=== PATIENT | female | born 1960 | race Caucasian/White ===

== ENCOUNTER 2022-08-26 02:26 | Inpatient (IN) | payer OTHER, SELFPAY ==
[2022-08-26] VITALS (55 sets, daily range): BP systolic 106–182; BP diastolic 56–114; PULSE 54–91; RESP 14–36; TEMP 36.4–37.7; O2SAT 92–100; BMI 46.2
--- NOTE | 2022-08-26 | ECG_ITS ---
Measurements Intervals [place] Rate: 80 P: 44 OK: 191 QRS: -18 QRSD: 106 T: 101 QT: 378 QTc: 438 Interpretive Statements SINUS RHYTHM MISSING LEAD V3 LEFT VENTRICULAR HYPERTROPHY AND ST-T CHANGE BASELINE ARTIFACT- V5-V6 BORDERLINE ECG NO PREVIOUS ECG AVAILABLE FOR COMPARISON Electronically Signed On 08-26-2022 6:48:05 CDT by Ren Carey D.O.
--- NOTE | 2022-08-26 | ECHO_ITS ---
Patient Info Name: Cassie Sharpe Age: 61 years : 1960 Gender: Female Ht: 67 in Wt: 295 lbs BSA: 2.59 m2 HR: 71 bpm BP: 106 / 56 mmHg Heart Rhythm: Sinus Rhythm Technical Quality: Fair Exam Date: 08/26/2022 9:21 AM Exam Location: [facility] Pulmonary Exam Room: ICU5 Patient Status: Inpatient Admit Date: 08/26/2022 Staff Ordering Physician: Rafa Mcgrath MD Power And Recovery Supervisor: Jalyn Parks RDCS Attending Provider: Zurdo Milton MD Exam Type: CA echo doppler color flow Study Info Indications - cardiac arrest Complete two-dimensional, color flow and Doppler transthoracic echocardiogram is performed. Summary 1. Complete two-dimensional, color flow and Doppler transthoracic echocardiogram is performed. 2. Left ventricular chamber dimension is normal. 3. Left ventricular systolic function is normal, estimated at 60-65%. 4. There is moderately increased left ventricular wall thickness. 5. The left ventricular diastolic function is grade I diastolic dysfunction. 6. Right ventricular systolic function is normal. 7. Left atrial chamber dimension is moderately enlarged. 8. Right atrial chamber dimension is moderately enlarged. 9. There is mild mitral valve regurgitation. 10. There is mild tricuspid valve regurgitation. 11. Dilated inferior vena cava with <50% collapse upon inspiration consistent with elevated right atrial pressure, 15 mmHg. Left Ventricle Left ventricular chamber dimension is normal. Left ventricular systolic function is normal, estimated at 60-65%. There is moderately increased left ventricular wall thickness. The left ventricular diastolic function is grade I diastolic dysfunction. Right Ventricle Right ventricular chamber dimension is normal. Right ventricular systolic function is normal. Left Atria Left atrial chamber dimension is moderately enlarged. Right Atria Right atrial chamber dimension is moderately enlarged. Aortic Valve The aortic valve is trileaflet. There is no aortic valve stenosis. There is no aortic valve regurgitation. There is mild aortic valve calcification. Pulmonic Valve The pulmonic valve is not well visualized. Mitral Valve The mitral valve has normal leaflets. There is no mitral valve stenosis. There is mild mitral valve regurgitation. The mitral valve annulus is mildly calcified. Tricuspid Valve There is mild tricuspid valve regurgitation. Pericardium/Pleural There is no pericardial effusion. Inferior Vena Cava Dilated inferior vena cava with <50% collapse upon inspiration consistent with elevated right atrial pressure, 15 mmHg. Aorta The aortic root size at the sinus of Valsalva is normal. Left Ventricular Outflow Tract Name Value Normal LVOT 2D LVOT Diameter 2.0 cm LVOT Doppler LVOT Peak Gradient 5 mmHg LVOT Mean Gradient 3 mmHg LVOT VTI 21 cm LVOT VTI/AV VTI Ratio 0.6 LVOT Stroke Volume 64 ml LVOT CO 15.7 l/min LVOT
--- NOTE | ~2022-08-26 | XR_ITS ---
Portable chest x-ray Comparison: 02/02/2009 Clinical History: Tube placement Findings: Endotracheal tube and NG tube are in satisfactory positions. There is extensive bilateral airspace disease, left lung worse than right. Cardiomediastinal silhouette is stable. Bones and soft tissues are unremarkable. Impression: Extensive bilateral airspace disease, left lung worse than right. Correlate for pulmonary edema/atele ctasis versus pneumonia. Support tubes, as above. Reviewed, dictated and finalized at location . Impression: Extensive bilateral airspace disease, left lung worse than right. Correlate for pulmonary edema/atelectasis versus pneumonia. Support tubes, as above.
--- NOTE | ~2022-08-26 | CT_ITS ---
EXAMINATION: CT brain wo con DATE: 08/28/2022 11:39 INDICATION: Altered mental status. TECHNIQUE: Computed tomography (CT) of the head was performed without intravenous contrast. The mA wa s adjusted according to patient size. Iterative reconstruction technique was employed. The dose-lengt h product was 605.33 mGy-cm. COMPARISON: Head CT 08/26/2022 FINDINGS: There is no intracranial hemorrhage, acute infarction, or abnormal intracranial mass lesion . The ventricles are normal in size. The paranasal sinuses are clear. The mastoid air cells are jesús l. The orbits are normal. IMPRESSION: 1. Normal brain. Reviewed, dictated and finalized at location A. IMPRESSION: 1. Normal brain.
--- NOTE | ~2022-08-26 | CT_ITS ---
Clinical Indication: Cardiac arrest CT Scan of the Chest, Abdomen, and Pelvis with Contrast: Technique: Contiguous sections were acquired throughout the chest, abdomen, and pelvis after intraven ous administration of 100 cc of Omnipaque 350. Dose reduction technique was used on this scan by wes eddying automated exposure control and iterative reconstruction technique. The dose-length product (DL P) was 2088.88 mGy-cm. Findings: Endotracheal tube and NG tube are in place. There is no evidence of any significant mediastinal, hilar or axillary lymphadenopathy. The mediastin al soft tissues appear normal. No aortic aneurysm or dissection. No large central pulmonary embolus s een. Probable cardiomegaly. There is no evidence of pleural or pericardial effusion. There is extensive, dense left upper lobe consolidation and volume loss, consistent with extensive le ft upper lobe atelectatic change. There is patchy airspace consolidation the bilateral lower lobes, w hich could reflect pulmonary edema/atelectasis versus pneumonia. There is mild patchy groundglass [place] in the right upper lobe. Displaced fracture at the anterior aspect of the right fourth and seventh ribs noted. Possible focal angulated nondisplaced fractures at the anterior right fifth and sixth ribs. The liver, spleen, pancreas, adrenals and kidneys are within normal limits. Cholecystectomy clips not ed. No evidence of aortic aneurysm. No lymphadenopathy. No bowel obstruction or bowel wall thickening. There is no evidence to suggest acute appendicitis. Urinary bladder is collapsed around a Fernández catheter. No pelvic mass seen. No ascites. Impression: Extensive left upper lobe atelectasis. Patchy consolidation to bilateral lung bases and mild patchy ground glass opacities in the right uppe r lobe. Correlate for pulmonary edema, pneumonia, or less likely pulmonary hemorrhage/pulmonary contu sions. Fractures of the right fourth and seventh ribs, and questionably the right fifth and sixth ribs. No significant abnormality in the abdomen or pelvis. Reviewed, dictated and finalized at location . Impression: Extensive left upper lobe atelectasis. Patchy consolidation to bilateral lung bases and mild patchy ground glass opaci ties in the right upper lobe. Correlate for pulmonary edema, pneumonia, or less likely pulmonary hemorrhage/pulmonary contusions. Fractures of the right fourth and seventh ribs, and questionably the right fift h and sixth ribs. No significant abnormality in the abdomen or pelvis.
--- NOTE | ~2022-08-26 | XR_ITS ---
EXAMINATION: XR abdomen/kub 1V DATE: 08/31/2022 09:44 INDICATION: Nasogastric tube with tube feedings and abdominal distention. TECHNIQUE: A supine view of the abdomen on 2 radiographs was obtained. COMPARISON: CT dated 08/26/2022 FINDINGS: Nasogastric tube tip in proximal side port in the body of the stomach. The gas filling the colon in w ithout wilma dilation. No dilated loops of gas-filled bowel to suggest obstruction. The bladder. Chol ecystectomy clips in right upper quadrant. Cardiomegaly. Bandlike discoid atelectasis at the left clinton g base. IMPRESSION: 1. Gastric tube in the stomach. 2. Gas-filled colon without frankly dilated bowel to suggest obstruction. 2. Cardiomegaly. Reviewed, dictated and finalized at location A.
--- NOTE | ~2022-08-26 | CT_ITS ---
EXAMINATION: CT diagnostic chest wo con DATE: 08/28/2022 11:39 INDICATION: Resp Failure TECHNIQUE: Computed tomography (CT) of the chest was performed without intravenous contrast. Addition al 3D reconstructions utilizing coronal maximum intensity projection (MIP) were performed. Automated exposure control and iterative reconstruction technique were employed. The dose-length product was 53 2.90 mGy-cm. COMPARISON: Chest CT dated 08/26/2022 FINDINGS: Endotracheal tube tip 5.0 cm above the carrie. Nasogastric tube extends into the stomach and below th e inferior most axial image. Left lower lobe collapse and partial right lower lobe collapse. And volu me loss and groundglass opacities in the left upper lobe and lingula and in the noncollapsed portion of the right lower lobe and favor additional atelectasis over pneumonia. No septal line thickening to suggest pulmonary edema. No pleural effusion. Cardiomegaly. Atherosclerotic coronary artery calcific ations. No pericardial effusion. Enlargement of the central pulmonary arteries consistent with pulmon clive arterial hypertension. Thoracic aorta is normal in caliber. No pathologically enlarged thoracic l ymphadenopathy. Coarse calcifications at the thyroid without discrete nodule. Visualized upper abdome n is unremarkable. Again seen are relatively recent-appearing fractures of the right fourth-seventh r ibs. There are bridging osteophytes at multiple levels in the spine, consistent with diffuse idiopath ic skeletal hyperostosis (DISH). IMPRESSION: 1. Left lower lobe collapse and partial collapse of the right lower lobe. Underlying pneumonia not ex cludable. 2. Groundglass opacities in the left upper lobe and lingula with corresponding volume loss and noncol lapsed portion of the right lower lobe and would favor additional less severe atelectasis over pneumo christopher. 3. Cardiomegaly with enlargement of the central pulmonary arteries consistent with pulmonary arterial hypertension. Reviewed, dictated and finalized at location B. IMPRESSION: 1. Left lower lobe collapse and partial collapse of the right lower lobe. Under lying pneumonia not excludable. 2. Groundglass opacities in the left upper lobe and lingula with corresponding volume loss and noncollapsed portion of the right lower lobe and would favor ad ditional less severe atelectasis over pneumonia. 3. Cardiomegaly with enlargement of the central pulmonary arteries consistent w ith pulmonary arterial hypertension.
--- NOTE | ~2022-08-26 | XR_ITS ---
XR chest 1V portable 08/29/2022 06:04 Indication: Respiratory failure Procedure: AP portable chest Comparison: Comparison to multiple prior studies sequentially, with oldest reviewed study dated 02/02. Findings: Endotracheal tube tip 5.9 cm above the carrie. Left subclavian PICC line tip takes a curve at the distal aspect, possibly in the azygos vein. Cardiomegaly. Retrocardiac opacification may repre sent atelectasis or developing pneumonia. NG tube in the stomach. No pneumothorax. Impression: 1: Retrocardiac opacification, atelectasis versus pneumonia. Reviewed, dictated and finalized at location A. Impression: 1: Retrocardiac opacification, atelectasis versus pneumonia.
--- NOTE | ~2022-08-26 | US_ITS ---
EXAMINATION: US venous doppler [facility] DATE: 08/26/2022 15:35 INDICATION: Lower limb swelling TECHNIQUE: Grayscale ultrasound images without and with compression and Doppler ultrasound images of the bilateral lower extremity veins were obtained. COMPARISON: None. FINDINGS: The visualized portions of right common femoral vein, profunda (deep) femoral vein, femoral vein, pop liteal vein, posterior tibial veins, peroneal veins, gastrocnemius vein and greater saphenous vein ou tflow are patent. The visualized portions of left common femoral vein, profunda femoral vein, femoral vein, popliteal v ein, posterior tibial veins, peroneal veins, gastrocnemius vein and greater saphenous vein outflow ar e patent. IMPRESSION: 1. No deep venous thrombosis in either lower limb. Reviewed, dictated and finalized at location B.
--- NOTE | ~2022-08-26 | XR_ITS ---
Portable chest x-ray Comparison: 08/27/2022 Clinical History: Respiratory failure Findings: Endotracheal tube, NG tube, and left PICC line are in place. There is probable left lower lobe atelectasis. There is central congestive change. Mild patchy airspace opacities are similar to p rior exam. Cardiomediastinal silhouette is stable. Bones and soft tissues are unremarkable. Impression: Support tubes, as above. Probable left lower lobe atelectasis. Mild patchy airspace disease is similar to prior exam. Correlate for atelectasis or pneumonia. Reviewed, dictated and finalized at location . Impression: Support tubes, as above. Probable left lower lobe atelectasis. Mild patchy airspace disease is similar to prior exam. Correlate for atelectasi s or pneumonia.
--- NOTE | ~2022-08-26 | CT_ITS ---
Non-contrast Head CT History: Cardiac arrest Technique: Axial non-contrast imaging of the brain was performed. Dose reduction technique was used on this scan by utilizing automated exposure control and iterative reconstruction technique. The dose -length product (DLP) was 681.00 mGy-cm. Findings: There is no evidence of intracranial hemorrhage, mass lesion, or acute infarct. Brain par enchyma appears normal. The ventricles and subarachnoid spaces are normal in size. The calvarium ap pears normal. The visualized paranasal sinuses and mastoid air cells are clear. Impression: No significant abnormality seen. Reviewed, dictated and finalized at location . Impression: No significant abnormality seen.
--- NOTE | ~2022-08-26 | XR_ITS ---
XR chest 1V portable 08/30/2022 06:45 Indication: Respiratory failure Procedure: AP portable chest Comparison: 08/29/2022 Findings: Borderline heart size. Endotracheal tube tip 6 cm above the carrie. NG tube in the stomach. Left subclavian PICC line tip in the SVC. Mild interstitial edema. No significant effusion or pneumo thorax. Impression: 1: Cardiomegaly with mild interstitial edema. Reviewed, dictated and finalized at location A. Impression: 1: Cardiomegaly with mild interstitial edema.
--- NOTE | ~2022-08-26 | XR_ITS ---
Portable chest x-ray Comparison: 08/26/2022 Clinical History: Respiratory failure Findings: Endotracheal tube, left-sided PICC line, and NG tube are in place. Probable small left ple ural effusion and complete left lower lobe atelectasis present. There is patchy airspace consolidatio n in the left upper lobe and right lower lobe. Cardiomediastinal silhouette is stable. Bones and sof t tissues are unremarkable. Impression: Support tubes, as above. Probable small left pleural effusion and extensive left lower lobe atelectasis. Patchy airspace consolidation left upper lobe and right lower lobe. Correlate for pulmonary edema, pn eumonia, or atelectatic changes. Reviewed, dictated and finalized at location . Impression: Support tubes, as above. Probable small left pleural effusion and extensive left lower lobe atelectasis. Patchy airspace consolidation left upper lobe and right lower lobe. Correlate f or pulmonary edema, pneumonia, or atelectatic changes.
--- NOTE | ~2022-08-26 | XR_ITS ---
Supine views of the abdomen Clinical history: NG tube placement Findings: NG tube is in satisfactory position. Bowel gas pattern is nonspecific. No evidence for obst ruction or free air. No abnormal mass lesion or calcification is seen. Osseous structures are intact. Impression: NG tube in satisfactory position. Nonspecific bowel gas pattern. Reviewed, dictated and finalized at [facility]. Impression: NG tube in satisfactory position. Nonspecific bowel gas pattern.
--- NOTE | ~2022-08-26 | XR_ITS ---
Portable chest x-ray Comparison: 09/01/2022 Clinical History: Respiratory failure Findings: Endotracheal tube, NG tube, and left-sided PICC line are in satisfactory positions. Possib le minimal central pulmonary edema pattern. Cardiomediastinal silhouette is stable. Bones and soft t issues are unremarkable. Impression: Possible minimal central pulmonary edema pattern. Support tubes, as above. Reviewed, dictated and finalized at location . Impression: Possible minimal central pulmonary edema pattern. Support tubes, as above.
--- NOTE | ~2022-08-26 | XR_ITS ---
Portable chest x-ray Comparison: 08/30/2022 Clinical History: Respiratory failure Findings: Endotracheal tube and left-sided PICC line are in satisfactory positions. NG tube present, tip, we clearly visualized to the distal third of the esophagus. There is probable mild central pulm onary edema. Cardiomediastinal silhouette is stable. Bones and soft tissues are unremarkable. Impression: Support tubes in place, as above. NG tube can only be clearly visualized to the distal third of the e sophagus. Consider abdominal x-ray to better confirm NG tube placement. Mild central pulmonary edema. Reviewed, dictated and finalized at location . Impression: Support tubes in place, as above. NG tube can only be clearly visualized to the distal third of the esophagus. Consider abdominal x-ray to better confirm NG t ube placement. Mild central pulmonary edema.
--- NOTE | ~2022-08-26 | XR_ITS ---
Portable chest x-ray Comparison: 08/31/2022 Clinical History: Respiratory failure Findings: Endotracheal tube and NG tube and left-sided PICC line are in satisfactory positions. Poss ible mild central congestive changes. Interval improvement in left perihilar hazy airspace disease. Cardiomediastinal silhouette is stable. Bones and soft tissues are unremarkable. Impression: Support tubes, as above. Probable central congestive changes and possible minimal central pulmonary edema. Reviewed, dictated and finalized at location . Impression: Support tubes, as above. Probable central congestive changes and possible minimal central pulmonary leonardo bojorquez
--- NOTE | 2022-08-26 02:47 | PC.NURSE ---
0248 20 mg etomidate IVP VORB ERP [place] 0248 100 mg succinylcholine IVP VORB ERP [place] 0250 pt. intubated w/ 7.5 et tube measuring at 21 @the lip. pt. intubated by ALIREZA Brasher. breath sounds auscultated bilat. positive color change noted.
[2022-08-26] MEDS: SODIUM CHLORIDE 0.9% IV 1,000 ML 999 ML IV CONT ×2 (02:58→05:41)
[2022-08-26] MEDS: PROPOFOL IV EMULSION 100 ML 4.02 MG IV CONT (02:59)
[2022-08-26 03:11] LABS: Glucose Point of Care 122 mg/dl (65-105)
[2022-08-26 03:24] LABS: Base Excess ABG -4.6 mEq/l (+/-2.0); Fractional Inspired Oxygen 100 %; HCO3 ABG 22.2 mEq/l (22.0-26.0); Oxygen Content ABG 18.6 %vol (16.0-22.0); Oxygen Saturation ABG 95.7 % (95.0-100.0); Oxyhemoglobin 93.3 % THb (90.0-100.0); PCO2 ABG 47.2 mmHg (35.0-45.0); PO2 ABG 87.8 mmHg (80.0-100.0); PO2 FiO2 Ratio Arterial Blood 0.88 %; Total Hemoglobin 14.1 g/dL (12.0-18.0)
[2022-08-26 03:25] LABS: Ethanol < 10 mg/dL (<10)
[2022-08-26 03:26] LABS: Device VENTILATOR; Modified Allen's Test Unable to perform; Site Drawn RIGHT RADIAL
[2022-08-26 03:27] LABS: Arterial Blood Gas PEEP 5 cmH2O; Arterial Blood Gas Tidal Volume 400 ml; Arterial Blood Gas Vent Mode CMV; Arterial Blood Gas Ventilator rate 16 /MIN
[2022-08-26 03:29] LABS: Lactic Acid Reflex 4.3 mmol/L (0.7-2.0)
[2022-08-26 03:32] LABS: INR 1.4; Partial Thromboplastin Time 33.6 SECONDS (22.3-36.8); Prothrombin Time 16.3 Seconds (11.1-14.7)
[2022-08-26 03:38] LABS: Hematocrit 45.9 % (37.0-47.0); Hemoglobin 14.1 g/dL (12.0-15.0); Mean Corpuscular HGB Conc 30.7 g/dl (32-36); Mean Corpuscular Hemoglobin 28.9 pg (26-34); Mean Corpuscular Volume 94.1 fl (80-100); Platelet Count Result 254 k/mm3 (150-375); Red Blood Count 4.88 M/mm3 (4.2-5.4); Red Cell Distribution Width 14.6 % (11.5-14.5); White Blood Count 25.5 K/mm3 (4.5-10.0)
[2022-08-26 03:39] LABS: Alanine Aminotransferase 223 U/L (6-35); Alkaline Phosphatase 82 U/L (38-126); Anion Gap 6 mmol/L (8-16); Aspartate Amino Transferase 232 U/L (14-36); Bilirubin,Total 1.2 mg/dL (0.2-1.3); Blood Urea Nitrogen 29 mg/dL (7-17); Calcium 8.4 mg/dL (8.4-10.2); Carbon Dioxide 24 mmol/L (22-30); Chloride 105 mmol/L (98-107); Estimated Glomerular Filt Rate 50; Glucose 161 mg/dL (65-110); Magnesium 2.4 mg/dL (1.6-2.3); Potassium 4.3 mmol/L (3.4-5.0); Sodium 135 mmol/L (137-145)
--- NOTE | 2022-08-26 03:43 | ED.GENADULT ---
HPI - General Adult General Chief complaint: Cardiac Arrest/CPR Stated complaint: CARDIAC ARREST History of Present Illness HPI narrative: Patient 61-year-old female who presents emerged from with chief complaint of cardiac arrest. EMS was called this evening for possible diabetic emergency and patient was found laying on the ground with a Insulin syringe nearby. Patient was found to have a blood sugar that was in the 60s in the field patient was found pulseless and initially asystole ACLS protocols were initiated and the patient became PEA and then had brief ROSC and then went back into PEA. Upon arrival to the emergency department the patient had a interosseous line placed in the field and a i-gel placed by EMS. Patient had return of spontaneous circulation upon pulse check upon arrival to the emergency department and was spontaneously breathing. History is limited due to information being obtained through EMS. Related Data Home Medications Medication Instructions Recorded Confirmed amlodipine 10 mg tablet 10 mg PO DAILY 04/01/22 04/01/22 aspirin 81 mg tablet,delayed 81 mg PO DAILY 04/01/22 04/01/22 release atorvastatin 40 mg tablet 40 mg PO DAILY 04/01/22 04/01/22 carvedilol 25 mg tablet 25 mg PO BID 04/01/22 04/01/22 digoxin 250 mcg (0.25 mg) tablet 250 mcg PO DAILY 04/01/22 04/01/22 isosorbide mononitrate 60 mg 60 mg PO DAILY 04/01/22 04/01/22 tablet,extended release 24 hr lisinopril 30 mg tablet 30 mg PO DAILY 04/01/22 04/01/22 Allergies Allergy/AdvReac Type Severity Reaction Status Date / Time amoxicillin AdvReac Unknown Unknown Unverified 04/01/22 09:49 POTASSIUM CLAVULANATE AdvReac Unknown Unknown Uncoded 04/01/22 09:49 Review of Systems Review of Systems: A 10 system review of systems was completed on the patient and is negative except for what is stated in the HPI. Nursing and ancillary documentation was reviewed. PMFSH Past Medical History Medical History Miosis Surgical History Surgical History Hx of section Hx of cholecystectomy (2008) Social History Social History Smoking status: Never smoker Exam Narrative: GENERAL: Obese ill-appearing, unresponsive HEAD: Normocephalic, atraumatic. EYES: PERRLA and EOMI. ENT: Nares clear, no rhinorrhea or epistaxis. Mucous membranes moist. I-gel in place NECK: Supple. CHEST: Clear to auscultation. No respiratory distress. HEART: Regular rate and rhythm. No murmur heard. Normal peripheral pulses. ABDOMEN: Soft, nontender, nondistended, normal active bowel sounds. EXTREMITIES: No deformity no edema SKIN: Warm, dry, no rash. NEURO: Not following commands but spontaneously breathing GCS 3 T PSYCH: Unable to obtain. Course Vital Signs Vital signs: Vital Signs Pulse Rate 86 08/26/22 02:50 Pulse Oximetry 95 08/26/22 02:50 Oxygen Delivery Mechanical Ventilation 08/26/22 02:50 Fraction of Inspired Oxygen 100 08/26/22 02:50 Pulse Rate 77 08/26/22 04:52 Respiratory Rate 24 H 08/26/22 03:31 Blood Pressure 181/102 H 08/26/22 03:31 Pulse Oximetry 95 08/26/22 04:52 Oxygen Delivery Mechanical Ventilation 08/26/22 04:52 Fraction of Inspired Oxygen 60 08/26/22 04:52 Procedures Intubation Intubation #1: Intubation Date: 08/26/22 Intubation Time: 03:48 Time out performed: Yes sedative: Etomidate Mg Given: 20 paralytic: Succinylcholine Mg Given: 100 Laryngoscope: fiber optic video scope Tube Size (cm): 7.5 Method of Intubation: orotracheal Number of Attempts: 1 Tube Secured Depth (cm): 21 Tube Secured Location: lips Tube Placement Confirmation: visualized tube passing through cords, equal breath sounds bilaterally, no breath sounds ove
[2022-08-26 03:50] LABS: NT Pro B Type Natriuretic Pept 245 pg/mL (19.9-100); Troponin I 0.096 ng/mL (0.000-0.034)
[2022-08-26 03:52] LABS: Appearance Urine Clear (Clear); Bacteria Urine 1+ /hpf; Bilirubin Urine Negative (Negative); Blood Urine 1+ (Negative); Color Urine Yellow (Yellow); Glucose Urine UA 1+ mg/dL (Negative); Influenza A QL RT-PCR Negative (Negative); Influenza B QL RT-PCR Negative (Negative); Ketones Urine Negative (Negative); Leukocyte Esterase Ur Negative LEU/UL (Negative); Need Manual Microscopic Reviewed; Nitrate Urine Negative (Negative); Protein Urine 3+ mg/dL (Negative); SARS-CoV-2 RNA PCR Negative; Specific Grav Ur 1.008 (1.001-1.035); Squamous Epithelial Cell Urine Occasional /hpf (Few); Urobilinogen Urine 0.2 mg/dL (<2.0); WBC Urine 21-50 /hpf
[2022-08-26 03:54] LABS: Add Urine Microscopic? YES
[2022-08-26 04:04] LABS: Atypical Lymphocytes Present; Band Neutrophils Percent 16 % (0-6); Lymphocytes Absolute Manual 7.14 K/mm3 (1.1-4.5); Metamyelocytes Percent 1 %; Monocytes Absolute Manual 0.51 K/mm3 (0.1-0.90); Monocytes Percent Manual 2 % (3-9); Myelocytes Percent 1 %; Neutrophils Absolute Manual 17.34 K/mm3 (1.7-7.2); Neutrophils Percent Manual 52 % (46-73); Platelet Estimate Adequate (Adequate); Schistocytes None Seen (NORMAL); Smudge Cells PRESENT; Total Cells Counted 100
[2022-08-26 04:05] LABS: Crenated RBC 1+ (NORMAL); Microcytosis 2+ (NORMAL)
[2022-08-26 06:14] LABS: Reflex Lactic Acid Yes or No Add Lactic
[2022-08-26] MEDS: CEFEPIME 2 GM/NS 50 ML 2 GM/50 ML BAG IVPB ×3 (06:40→20:36)
[2022-08-26 06:42] LABS: Glucose Point of Care 40 mg/dl (65-105)
--- NOTE | 2022-08-26 06:43 | PC.NURSE ---
pt. given amp of dextrose due to pt. BG being 40 ERP aware
[2022-08-26 06:47] LABS: Glucose Point of Care 153 mg/dl (65-105)
[2022-08-26] MEDS: PROPOFOL IV EMULSION 100 ML 16.07 MG IV CONT (06:54)
[2022-08-26 07:00] LABS: Lactic Acid 1.2 mmol/L (0.7-2.0)
[2022-08-26] MEDS: metroNIDAZOLE 500 MG/ISO 100ML 500 MG/100 ML BAG 100 MG IVPB ×2 (07:02→15:50)
[2022-08-26 07:27] LABS: Toxigenic C. Diff NEGATIVE (NEGATIVE)
--- NOTE | 2022-08-26 08:00 | ADMGEN ---
This patient, Cassie Sharpe, was admitted to Intensive Care Unit-5. Patient/family oriented to hospital policies and general routines including ID bracelet, bed and alarms, visiting hours, pain management, procedures, bathroom and other care routines, personal items, smoking policy, room service/diet, and visiting hours. Information on how to activate the Rapid Response Team has been discussed. Patient/Family are encouraged to report perceived risks to care and to ask questions if they do not understand what they are told or what they should do.
--- NOTE | 2022-08-26 08:18 | WPDCNINT ---
Assessment and Plan Assessment and plan (1) Cardiac arrest: Code(s): I46.9 - Cardiac arrest, cause unspecified Status: Acute Assessment and Plan: most likely secondary to hypoglycemia although other etiologies are possible hypoglycemia is being treated at this time with dextrose serial troponin, aspirin, beta-jeff check echocardiogram No PE and CT scan suggest pneumonia which is being treated with antibiotics cardiology consult (2) Hypoglycemia: Code(s): E16.2 - Hypoglycemia, unspecified Status: Acute Assessment and Plan: It appears that she has had issues with hypoglycemia in the past and has been admitted at least twice to the hospital with hypoglycemia and then seen in outpatient clinic with similar complaint. her insulin has been adjusted in the past. Per her niece patient takes her insulin like clockwork but she is not sure whether she took her insulin last night. She states the patient takes 40 units of insulin 3 times a day although she was unable to tell me what type of insulin patient takes. this could be accidental overdose with insulin. I have started patient on D5 normal saline and will check sugars q.1 hour hours for now until they are stable then less frequent (3) Acute respiratory failure: Code(s): J96.00 - Acute respiratory failure, unspecified whether with hypoxia or hypercapnia Status: Acute Assessment and Plan: Acute Respiratory failure secondary to cardiac arrest, encephalopathy and pneumonia CT scan reviewed Continue full mechanical ventilation support to prevent hypoxemia/hypercarbia and end organ damage. ventilator settings reviewed and I have repeated ABG and reviewed it. Low tidal volume ventilation strategy to prevent volutrauma her weaning with the depend on her neurological improvement (4) Anoxic brain injury: Code(s): G93.1 - Anoxic brain damage, not elsewhere classified Status: Acute Assessment and Plan: on holding propofol patient does not exhibit any purposeful movement. she is moving all 4 extremities but appears to be posturing. myoclonic jerking Add Keppra continue propofol and will reassess later patient was down for unknown period of time and also was in non shockable rhythm (asystole/PEA) head CT was negative will proceed with moderate TTM and try to keep patient normothermic. Tylenol and cooling blanket ordered (5) Type 1 diabetes mellitus with hyperglycemia: Code(s): E10.65 - Type 1 diabetes mellitus with hyperglycemia Status: Acute Assessment and Plan: currently hypoglycemic and all insulin on hold (6) Hypertensive heart disease with heart failure: Code(s): I11.0 - Hypertensive heart disease with heart failure Status: Acute Assessment and Plan: patient now on propofol and blood pressure is in controlled range off sedation she was hypertensive I will hold her scheduled blood pressure medications at this time p.r.n. hydralazine (7) Chronic systolic (congestive) heart failure: Code(s): I50.22 - Chronic systolic (congestive) heart failure Status: Acute Assessment and Plan: patient has congestive heart failure history although details are not known check echocardiogram conservative IV fluids (8) Elevated troponin: Code(s): R77.8 - Other specified abnormalities of plasma proteins Status: Acute Assessment and Plan: EKG reviewed serial troponin echo consult cardiology add aspirin and beta-jeff (9) Pneumonia: Code(s): J18.9 - Pneumonia, unspecified organism Status: Acute Assessment and Plan: CT since suggest pneumonia with elevated WBC count. this could be aspiration continue vancomycin cefepime and Flagyl blood and sputum culture sent (10) Swelling of right lower extremity: Code(s): M79.89 - Other specified soft tissue disorders Status: Acute Asses
[2022-08-26] MEDS: DEXTROSE 5%/0.9% SOD CHL 1,000 ML 100 ML IV CONT ×2 (08:40→08:57)
[2022-08-26] MEDS: PANTOPRAZOLE SODIUM IV 40 MG VIAL IV PUSH (08:40)
[2022-08-26] MEDS: ENOXAPARIN 40 MG/0.4 ML SYRINGE SUB-Q (08:56)
[2022-08-26 08:58] LABS: Alveolar/Arterial O2 Gradient 244.7 mmHg; Base Excess ABG -5.3 mEq/l (+/-2.0); Fractional Inspired Oxygen 50 %; HCO3 ABG 19.4 mEq/l (22.0-26.0); Oxygen Content ABG 17.4 %vol (16.0-22.0); Oxygen Saturation ABG 94.1 % (95.0-100.0); Oxyhemoglobin 92.7 % THb (90.0-100.0); PCO2 ABG 35.2 mmHg (35.0-45.0); PO2 ABG 72.2 mmHg (80.0-100.0); PO2 FiO2 Ratio Arterial Blood 1.44 %; Total Hemoglobin 13.3 g/dL (12.0-18.0); pH ABG 7.359 (7.350-7.450)
[2022-08-26] MEDS: ASPIRIN 325 MG TABLET FEED TUBE (08:58)
[2022-08-26 08:59] LABS: Arterial Blood Gas Vent Mode CMV; Arterial Blood Gas Ventilator rate 18 /MIN; Device VENTILATOR; Modified Allen's Test Pass; Site Drawn RIGHT RADIAL
[2022-08-26 08:59] LABS: Digoxin < 0.4 ng/mL (0.8-2.0)
[2022-08-26 09:00] LABS: Arterial Blood Gas PEEP 5 cmH2O; Arterial Blood Gas Tidal Volume 400 ml
[2022-08-26 09:03] LABS: Glucose Point of Care 83 mg/dl (65-105)
[2022-08-26 09:03] LABS: Glucose Point of Care 119 mg/dl (65-105)
[2022-08-26 10:03] LABS: Glucose Point of Care 134 mg/dl (65-105)
[2022-08-26 10:21] LABS: Amphetamine Screen Urine Negative (Negative); Barbiturate Screen Urine Negative (Negative); Benzodiazepines Screen Urine Negative (Negative); Cannabinoid Screen Urine Negative (Negative); Cocaine Screen Urine Negative (Negative); Methadone Screen Urine Negative (Negative); Opiate Screen Urine Negative (Negative); Phencyclidine Screen Urine Negative (Negative)
[2022-08-26] MEDS: LIDOCAINE HCL 1% PF INJ 5 ML VIAL INFILTRATE (10:40)
[2022-08-26] MEDS: levETIRAcetam 1000MG/NACL100ML 1,000 MG/100 ML BAG 400 MG IVPB (11:30)
[2022-08-26 11:35] LABS: Glucose Point of Care 170 mg/dl (65-105)
[2022-08-26 12:08] LABS: Glucose Point of Care 152 mg/dl (65-105)
[2022-08-26] MEDS: PROPOFOL IV EMULSION 100 ML 25 MG (13:23)
--- NOTE | 2022-08-26 13:25 | PC.NURSE ---
Michele Martinez with adult protective services was here to assess patient status. Report was made to their services a day prior to admission. business coordinator has connected with her and will follow up with them.
--- NOTE | 2022-08-26 13:28 | PM.CNCAR ---
Assessment and Plan Assessment and plan (1) Elevated troponin: Code(s): R77.8 - Other specified abnormalities of plasma proteins Status: Acute Assessment and Plan: Troponin 0.096 --> 1.0 --> 1.190. EKG with sinus rhythm with LVH with secondary repolarization abnormalities. No ischemic changes. In the setting of cardiac arrest, CPR. Does not appear to be ACS. Continue to trend troponins until peak. (2) Cardiac arrest: Code(s): I46.9 - Cardiac arrest, cause unspecified Status: Acute Assessment and Plan: Reported asystole/PEA arrest. No shockable rhythm. Management as per ICU team. Echocardiogram reviewed - LVEF is preserved. (3) Acute respiratory failure: Code(s): J96.00 - Acute respiratory failure, unspecified whether with hypoxia or hypercapnia Status: Acute Assessment and Plan: Intubated (4) Anoxic brain injury: Code(s): G93.1 - Anoxic brain damage, not elsewhere classified Status: Acute Assessment and Plan: There is concern for anoxic brain injury. History of Present Illness History of Present Illness Consult date/time: 08/26/22 13:28 Requesting physician: Rafa Mcgrath MD Consult reason: Other (Cardiac arrest) Reason For Visit: status post cardiac arrest,pneumonia,hypoglycemia Narrative: We are consulted for elevated troponin, cardiac arrest. Patient is intubated and unresponsive, therefore, all history obtained from her chart and medical team. This is a 61-year-old female with a history of congestive heart failure, hypertension, diabetes who presented to the ER after cardiac arrest. EMS was called and they found patient laying on the floor with an insulin syringe beside her. Blood sugar in the 60s. Found pulseless. She was in asystole and CPR was started. Patient converted to PEA and then ROSC was obtained. Patient intubated. Per ER, patient was showing signs of purposeful movement in the ER and was trying to pull out ET tube. Labs significant for WBC 25, lactate of 4.3. CT head without acute findings. EKG with sinus rhythm with LVH with secondary repolarization abnormalities, no evidence of ischemia. Per ICU team, patient does not exhibit any purposeful movement when her propofol is held. Patient was recently discharged from [facility] on 08/20 after being admitted with severe diabetic hypoglycemia. 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, left eye Surgical History Surgical History Hx of section Hx of cholecystectomy (2008) Social History Social History Smoking status: Unknown if ever smoked Alcohol intake: unknown Substance use: unknown Substance use type: unknown Spiritual care concerns: No Meds Home Medications and Allergies Home Medications Medication Instructions Recorded Confirmed Type aspirin 81 mg tablet,delayed 81 mg PO DAILY 04/01/22 08/26/22 History release amlodipine 10 mg tablet 10 mg PO DAILY 08/26/22 08/26/22 History apixaban 5 mg (74 tabs) tablets in 5 mg PO BID 08/26/22 08/26/22 History a dose pack (Sleep.FM DVT-PE Treat 30D Start) clonidine HCl 0.2 mg tablet 0.2 mg PO TID 08/26/22 08/26/22 History digoxin 250 mcg (0.25 mg) tablet 250 mcg PO DAILY 08/26/22 08/26/22 History furosemide 40 mg tablet 40 mg PO DAILY 08/26/22 08/26/22 History insulin NPH-regular 70-30 U-100 See Rx Instructions .Route .COMPLEX 08/26/22 08/26/22 History insulin 100 unit/mL subcutaneous
[2022-08-26] MEDS: PROPOFOL IV EMULSION 100 ML 20.09 MG IV CONT (13:29)
[2022-08-26] MEDS: CENTRAL LINE FLUSH 10 ML IV PUSH ×2 (14:00→20:38)
--- NOTE | 2022-08-26 15:04 | PM.IMHP ---
H&P: HPI History of Present Illness Date/Time: 08/26/22 15:04 Chief Complaint: Cardiac arrest Narrative: Patient was intubated and sedated at bedside at the time of this encounter, HPI garnered from ER documentation and nurse's report that patient was found on the floor with insulin syringe beside her, BG was in 60s and patient went into asytole and resuscitated with ACLS protocol. Had PEA arrest enroute to the ER and was resuscitated. labs in the ER in pO2 72.2, Troponin 1, AST/ALT 232/223, lactic acid 4.3, WBC 25.5, CT scan showed bilateral patchy consolidation and mild patchy ground glass and fractures of right fourth and seventh ribs and possibly right 5th and 6th ribs. She was intubated, and admitted to the ICU. pancultured and broad abx. 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, left eye Surgical History Surgical History Hx of section Hx of cholecystectomy (2008) Social History Social History Smoking status: Unknown if ever smoked Alcohol intake: unknown Substance use: unknown Substance use type: unknown Spiritual care concerns: No Meds Home Medications and Allergies Home Medications Medication Instructions Recorded Confirmed Type aspirin 81 mg tablet,delayed 81 mg PO DAILY 04/01/22 08/26/22 History release amlodipine 10 mg tablet 10 mg PO DAILY 08/26/22 08/26/22 History apixaban 5 mg (74 tabs) tablets in 5 mg PO BID 08/26/22 08/26/22 History a dose pack (Eliquis DVT-PE Treat 30D Start) clonidine HCl 0.2 mg tablet 0.2 mg PO TID 08/26/22 08/26/22 History digoxin 250 mcg (0.25 mg) tablet 250 mcg PO DAILY 08/26/22 08/26/22 History furosemide 40 mg tablet 40 mg PO DAILY 08/26/22 08/26/22 History insulin NPH-regular 70-30 U-100 See Rx Instructions .Route .COMPLEX 08/26/22 08/26/22 History insulin 100 unit/mL subcutaneous pen (Humulin 70/30 U-100 KwikPen) insulin glargine 100 unit/mL (3 70 unit subcut QHS 08/26/22 08/26/22 History mL) subcutaneous pen insulin lispro 100 unit/mL 12 unit subcut TIDWMEAL 08/26/22 08/26/22 History subcutaneous pen isosorbide mononitrate 60 mg 60 mg PO DAILY 08/26/22 08/26/22 History tablet,extended release 24 hr lisinopril 40 mg tablet 40 mg PO DAILY 08/26/22 08/26/22 History metformin 500 mg tablet,extended 1,000 mg PO BID 08/26/22 08/26/22 History release 24 hr Allergies Allergy/AdvReac Type Severity Reaction Status Date / Time amoxicillin [From Augmentin] Allergy Unknown Verified 08/26/22 09:54 clavulanic acid Allergy Unknown Verified 08/26/22 09:54 [From Augmentin] Vital Signs Vital Signs - 24 hr 08/26/22 02:59 08/26/22 02:50 08/26/22 03:29 Temperature 97.7 F Pulse Rate 79 86 91 Respiratory Rate 18 36 H Blood Pressure 182/80 H Pulse Oximetry 95 100 Oxygen Delivery Mechanical Ventilation Fraction of Inspired Oxygen 100 08/26/22 03:31 08/26/22 04:52 08/26/22 03:32 Temperature Pulse Rate 88 77 83 Respiratory Rate 24 H 30 H Blood Pressure 181/102 H Pulse Oximetry 95 95 100 Oxygen Delivery Mechanical Ventilation Fraction of Inspired Oxygen 60 08/26/22 03:45 08/26/22 03:47 08/26/22 04:00 Temperature Pulse Rate 75 76 76 Respiratory Rate 27 H 21 H 25 H Blood Pressure 119/59 L Pulse Oximetry 100 100 100 Oxygen Delivery Fraction of Inspired Oxygen 08/26/22 04:01 08/26/22 04:15 08/26/22 04:35 Temperature Pulse Rate 75 78 78 Respiratory Rate 23 H 23 H Blood Pressure 134/114 H
[2022-08-26 16:06] LABS: Triglycerides 144 mg/dL (<150)
[2022-08-26] MEDS: PROPOFOL IV EMULSION 100 ML 32.1 MG (17:48)
[2022-08-26 18:21] LABS: Glucose Point of Care 177 mg/dl (65-105)
[2022-08-26 18:21] LABS: Glucose Point of Care 162 mg/dl (65-105)
[2022-08-26 18:21] LABS: Glucose Point of Care 166 mg/dl (65-105)
[2022-08-26] MEDS: levETIRAcetam 500MG/NACL 100ML 500 MG/100 ML BAG 400 MG IVPB (20:37)
[2022-08-26] MEDS: carvediloL 3.125 MG TABLET FEED TUBE (20:37)
[2022-08-27] VITALS (32 sets, daily range): BP systolic 129–218; BP diastolic 58–98; PULSE 55–83; RESP 18–22; TEMP 36.6–37.7; O2SAT 92–99; BMI 37.2
[2022-08-27] MEDS: metroNIDAZOLE 500 MG/ISO 100ML 500 MG/100 ML BAG 100 MG IVPB ×4 (00:17→23:08)
[2022-08-27] MEDS: PROPOFOL IV EMULSION 100 ML 32.14 MG IV CONT (00:18)
[2022-08-27] MEDS: PROPOFOL IV EMULSION 100 ML 28.12 MG IV CONT (03:23)
[2022-08-27 05:23] LABS: Glucose Point of Care 186 mg/dl (65-105)
[2022-08-27 05:23] LABS: Glucose Point of Care 187 mg/dl (65-105)
[2022-08-27 05:23] LABS: Glucose Point of Care 204 mg/dl (65-105)
[2022-08-27 05:23] LABS: Glucose Point of Care 190 mg/dl (65-105)
[2022-08-27 05:56] LABS: Alveolar/Arterial O2 Gradient 171.6 mmHg; Base Excess ABG -1.8 mEq/l (+/-2.0); Carboxyhemoglobin 0.3 % THb (0-2.0); Fractional Inspired Oxygen 40 %; HCO3 ABG 22.8 mEq/l (22.0-26.0); Methemoglobin ABG 0.4 %THb (0-1.5); Modified Allen's Test Pass; Oxygen Content ABG 16.8 %vol (16.0-22.0); Oxyhemoglobin 92.7 % THb (90.0-100.0); PCO2 ABG 38.2 mmHg (35.0-45.0); PO2 ABG 69.7 mmHg (80.0-100.0); PO2 FiO2 Ratio Arterial Blood 1.74 %; Reduced Hemoglobin 6.6 %THb (0-5.0); Site Drawn RIGHT RADIAL; Total Hemoglobin 12.9 g/dL (12.0-18.0); pH ABG 7.393 (7.350-7.450)
[2022-08-27 05:57] LABS: Arterial Blood Gas PEEP 5 cmH2O; Arterial Blood Gas Tidal Volume 400 ml; Arterial Blood Gas Vent Mode CMV; Arterial Blood Gas Ventilator rate 18 /MIN; Device VENTILATOR
[2022-08-27 07:02] LABS: Hematocrit 28.2 % (37.0-47.0); Hemoglobin 8.8 g/dL (12.0-15.0); Mean Corpuscular HGB Conc 31.2 g/dl (32-36); Mean Corpuscular Hemoglobin 29.1 pg (26-34); Mean Corpuscular Volume 93.4 fl (80-100); Mean Platelet Volume 10.5 fl (7.4-10.4); Platelet Count Result 149 k/mm3 (150-375); Red Blood Count 3.02 M/mm3 (4.2-5.4); Red Cell Distribution Width 14.9 % (11.5-14.5); White Blood Count 8.9 K/mm3 (4.5-10.0)
[2022-08-27 07:47] LABS: Alanine Aminotransferase 144 U/L (6-35); Albumin Level 2.5 g/dL (3.5-5.1); Alkaline Phosphatase 76 U/L (38-126); Anion Gap 2 mmol/L (8-16); Aspartate Amino Transferase 48 U/L (14-36); Bilirubin,Total 0.5 mg/dL (0.2-1.3); Blood Urea Nitrogen 27 mg/dL (7-17); Carbon Dioxide 24 mmol/L (22-30); Chloride 109 mmol/L (98-107); Estimated CRCL calculation 61 ml/min; Estimated Glomerular Filt Rate 50; Glucose 216 mg/dL (65-110); Magnesium 1.9 mg/dL (1.6-2.3); Phosphorus 3.7 mg/dL (2.5-4.5); Potassium 3.1 mmol/L (3.4-5.0); Sodium 135 mmol/L (137-145)
[2022-08-27 09:00] LABS: Glucose Point of Care 259 mg/dl (65-105)
[2022-08-27 09:04] LABS: NT Pro B Type Natriuretic Pept 2030 pg/mL (19.9-100)
--- NOTE | 2022-08-27 09:05 | WPDINTPN ---
Progress Note: A&P Assessment and Plan (1) Cardiac arrest: Code(s): I46.9 - Cardiac arrest, cause unspecified Status: Acute Assessment and Plan: most likely secondary to hypoglycemia although other etiologies are possible hypoglycemia has resolved serial troponin were done and now decreasing. Continue aspirin, beta-jeff No PE and CT scan suggest pneumonia which is being treated with antibiotics cardiology following echoSummary ? 1. Complete two-dimensional, color flow and Doppler transthoracic echocardiogram is performed. ? 2. Left ventricular chamber dimension is normal. ? 3. Left ventricular systolic function is normal, estimated at 60-65%. ? 4. There is moderately increased left ventricular wall thickness. ? 5. The left ventricular diastolic function is grade I diastolic dysfunction. ? 6. Right ventricular systolic function is normal. ? 7. Left atrial chamber dimension is moderately enlarged. ? 8. Right atrial chamber dimension is moderately enlarged. ? 9. There is mild mitral valve regurgitation. ? 10. There is mild tricuspid valve regurgitation. ? 11. Dilated inferior vena cava with <50% collapse upon inspiration consistent with elevated right atrial pressure, 15 mmHg (2) Hypoglycemia: Code(s): E16.2 - Hypoglycemia, unspecified Status: Acute Assessment and Plan: It appears that she has had issues with hypoglycemia in the past and has been admitted at least twice to the hospital with hypoglycemia and then seen in outpatient clinic with similar complaint. her insulin has been adjusted in the past. Per her niece patient takes her insulin like clockwork but she is not sure whether she took her insulin last night. She states the patient takes 40 units of insulin 3 times a day although she was unable to tell me what type of insulin patient takes. this could be accidental overdose with insulin. hypoglycemia has resolved and I will discontinue D5 continue tube feeds add sliding scale insulin hyperglycemia (3) Acute respiratory failure: Code(s): J96.00 - Acute respiratory failure, unspecified whether with hypoxia or hypercapnia Status: Acute Assessment and Plan: Acute Respiratory failure secondary to cardiac arrest, encephalopathy and pneumonia ABG and chest x-ray reviewed reviewed Continue full mechanical ventilation support to prevent hypoxemia/hypercarbia and end organ damage. ventilator settings reviewed and I have repeated ABG and reviewed it. Low tidal volume ventilation strategy to prevent volutrauma her weaning with the depend on her neurological improvement (4) Anoxic brain injury: Code(s): G93.1 - Anoxic brain damage, not elsewhere classified Status: Acute Assessment and Plan: on presentation patient on holding propofol patient did not exhibit any purposeful movement. she was moving all 4 extremities but appears to be posturing. concerns of anoxic brain injury continue Keppra continue propofol which is currently on hold for sedation holiday patient was down for unknown period of time and also was in non shockable rhythm (asystole/PEA) head CT was negative continue with moderate TTM and try to keep patient normothermic. Tylenol and cooling blanket ordered will check EEG Consult Neurology on review her of discharge summary from 08/20/2022 patient had MRI which did not show any stroke, she had a TTE with bubble study which showed a PFO but no atrial thrombus. 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 Time she was started on Eliquis. will discuss with Neurology. Her head CT on admission was unremarkable for any acute change (5) Type 1 diabetes mellitus with hyperglycemia: Code(s): E10.65 - Type 1 diabetes mellitus with hyperglycemia Status: Acute Assessment and Plan: blood sugars are now elevated ordered sliding scale insulin (6) Hypertensive heart disease with heart failur
[2022-08-27] MEDS: PANTOPRAZOLE SODIUM IV 40 MG VIAL IV PUSH (09:17)
[2022-08-27] MEDS: levETIRAcetam 500MG/NACL 100ML 500 MG/100 ML BAG 400 MG IVPB ×2 (09:32→21:32)
[2022-08-27] MEDS: LABETALOL HCL INJ 100 MG/20 ML VIAL 20 MG IV PUSH ×3 (09:43→21:02)
[2022-08-27 10:10] LABS: Hematocrit 39.5 % (37.0-47.0); Hemoglobin 12.5 g/dL (12.0-15.0); Mean Corpuscular HGB Conc 31.6 g/dl (32-36); Mean Corpuscular Hemoglobin 28.7 pg (26-34); Mean Corpuscular Volume 90.6 fl (80-100); Mean Platelet Volume 9.6 fl (7.4-10.4); Platelet Count Result 190 k/mm3 (150-375); Red Blood Count 4.36 M/mm3 (4.2-5.4); Red Cell Distribution Width 14.7 % (11.5-14.5); White Blood Count 12.8 K/mm3 (4.5-10.0)
--- NOTE | 2022-08-27 10:23 | WPDNEURCNPN ---
Assessment and Plan Assessment and plan (1) Anoxic brain injury: Code(s): G93.1 - Anoxic brain damage, not elsewhere classified Status: Acute (2) Cardiac arrest: Code(s): I46.9 - Cardiac arrest, cause unspecified Status: Acute (3) Acute respiratory failure: Code(s): J96.00 - Acute respiratory failure, unspecified whether with hypoxia or hypercapnia Status: Acute (4) Abnormal involuntary movement: Code(s): R25.9 - Unspecified abnormal involuntary movements Status: Acute (5) Chronic systolic (congestive) heart failure: Code(s): I50.22 - Chronic systolic (congestive) heart failure Status: Acute (6) Diabetes: Code(s): E11.9 - Type 2 diabetes mellitus without complications Status: Acute (7) Atrial fibrillation: Code(s): I48.91 - Unspecified atrial fibrillation Status: Acute (8) Hypertension: Code(s): I10 - Essential (primary) hypertension Status: Acute Plan Cassie Sharpe is a 61 year old female with a history of atrial fibrillation, CAD, hypertension, hyperlipidemia, diabetes mellitus type 2, CHF who was found unresponsive s/p cardiac arrest. Patient has not had significant changes in exam since discontinuation of sedation. Concern for anoxic brain injury. As for anticoagulation, unclear why she was started on it earlier this month for middle cerebral artery stenosis with no evidence of stroke noted on MRI from that admission. She does have a history of atrial fibrillation, and based on her her other comorbidities, would be reasonable to continue Eliquis (CHADsVASc score 5). - Will obtain routine EEG to assess background - Agree with maintenance [facility] Consult date: 08/27/22 Reason for consult: Anoxic brain injury HPI: Cassie Sharpe is a 61 year old female with a history of atrial fibrillation, hypertension, hyperlipidemia, diabetes mellitus, CHF who was found unresponsive. Patient was found down with insulin syrunge next to her on day of presentation. EMS was called and her blood sugar was in the 60s. She was in PEA, but did have eventual return of circulation by the time she had arrived to [place] [facility]. It is unclear how long patient was down . In the ED, she was intubated and sedated with propofol. CT head was negative for acute process. She was subsequently admitted to the ICU. Propofol was discontinued, but patient reportedly is making any purposeful movements. There are also concerns for myoclonic type movements so she has been started in maintenance Keppra 500mg BID. Her propofol was restarted this morning. Per bedside nurse, patient was moving all extremities equally (just not purposefully), prior to resuming the propofol. Of note, patient has a documented history of atrial fibrillation noted on ED visit to [facility] from 09/08/21. She was also admitted in 08/20/22 after being found unresponsive. During that admission she had a CTA that showed stenosis of bilateral MCA. MRI was negative for acute stroke. Her TTE showed PFO but no evidence of thrombus. Patient was started on Eliquis on that admission. 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
[2022-08-27] MEDS: METOCLOPRAMIDE HCL 10 MG/10 ML SOLN UDC FEED TUBE ×2 (11:15→17:55)
[2022-08-27 11:36] LABS: Glucose Point of Care 192 mg/dl (65-105)
[2022-08-27 11:36] LABS: Glucose Point of Care 200 mg/dl (65-105)
--- NOTE | 2022-08-27 12:01 | PCFNICU ---
ICU Rounding Note: Pt current nutrition is Vital AF 1.2 at 40 ml/hr. Last recorded weight is 107.8 kg. Bowel Motility:+BM reported 08/26 Labs Reviewed:Glu 216, BUN 27, GFR 50, Cr 1.1,Alb 2.5 Meds Noted:Reglan, Keppra, Flagyl, Propofol 20 pveh=967 kcal, Lovenox Skin: WNL Additional Notes: Patient remains on mechanical vent and tube feedings of Vital AF 1.2 at 40 ml/hr. Tube feedings are being tolerated. Prosource TID for additional 120 kcals and 33 gms protein. Total nutrition at this time, 1600 kcals/99 gms protein/893 ml water. Flush 30 ml q 4hours. Following daily in ICU rounds. Monitor daily in ICU rounds. Reassessment Tuesdays and Fridays per policy.
[2022-08-27] MEDS: PROPOFOL IV EMULSION 100 ML 20.09 MG IV CONT ×2 (14:30→19:30)
[2022-08-27] MEDS: CENTRAL LINE FLUSH 10 ML IV PUSH ×2 (15:09→21:52)
[2022-08-27 16:42] LABS: Glucose Point of Care 147 mg/dl (65-105)
[2022-08-27 18:31] LABS: Hematocrit 35.9 % (37.0-47.0); Hemoglobin 11.6 g/dL (12.0-15.0)
[2022-08-27 20:12] LABS: Vancomycin Trough 17.7 ug/mL (10.0-20.0)
[2022-08-27 20:28] LABS: Glucose Point of Care 188 mg/dl (65-105)
[2022-08-27] MEDS: carvediloL 3.125 MG TABLET FEED TUBE (21:27)
[2022-08-27] MEDS: ACETAMINOPHEN 325 MG TABLET 650 MG PO (21:32)
[2022-08-27] MEDS: CEFEPIME 2 GM/NS 50 ML 2 GM/50 ML BAG IVPB (21:52)
[2022-08-27] MEDS: PROPOFOL IV EMULSION 100 ML 16.07 MG IV CONT (23:09)
[2022-08-28] VITALS (42 sets, daily range): BP systolic 116–191; BP diastolic 63–84; PULSE 18–89; RESP 18–26; TEMP 36.5–37.7; O2SAT 91–98
[2022-08-28] MEDS: METOCLOPRAMIDE HCL 10 MG/10 ML SOLN UDC FEED TUBE ×5 (00:24→23:20)
[2022-08-28] MEDS: LABETALOL HCL INJ 100 MG/20 ML VIAL 20 MG IV PUSH ×2 (00:25→04:31)
[2022-08-28] MEDS: INSULIN ASPART (*BKC) 100 UNITS/ML SUB-Q ×3 (00:31→20:35)
[2022-08-28 00:35] LABS: Glucose Point of Care 233 mg/dl (65-105)
--- NOTE | 2022-08-28 02:14 | PC.NURSE ---
propofol increased due to patient staying tachypneic with respiratory rate of 25 and vent settings at 18.
[2022-08-28 04:14] LABS: Glucose Point of Care 199 mg/dl (65-105)
[2022-08-28] MEDS: PROPOFOL IV EMULSION 100 ML 28.12 MG IV CONT ×2 (04:30→16:48)
[2022-08-28] MEDS: CEFEPIME 2 GM/NS 50 ML 2 GM/50 ML BAG IVPB ×3 (05:01→21:23)
[2022-08-28 05:02] LABS: Hematocrit 34.7 % (37.0-47.0); Hemoglobin 11.1 g/dL (12.0-15.0); Mean Corpuscular Hemoglobin 28.3 pg (26-34); Mean Corpuscular Volume 88.5 fl (80-100); Mean Platelet Volume 9.6 fl (7.4-10.4); Platelet Count Result 184 k/mm3 (150-375); Red Blood Count 3.92 M/mm3 (4.2-5.4); White Blood Count 11.8 K/mm3 (4.5-10.0)
[2022-08-28] MEDS: CENTRAL LINE FLUSH 10 ML IV PUSH ×3 (05:02→21:13)
[2022-08-28 05:11] LABS: Alveolar/Arterial O2 Gradient 160.6 mmHg; Base Excess ABG -1.5 mEq/l (+/-2.0); Carboxyhemoglobin 0.3 % THb (0-2.0); Fractional Inspired Oxygen 40 %; HCO3 ABG 23.4 mEq/l (22.0-26.0); Methemoglobin ABG 0.2 %THb (0-1.5); Oxygen Content ABG 16.6 %vol (16.0-22.0); Oxygen Saturation ABG 95.4 % (95.0-100.0); PCO2 ABG 40.3 mmHg (35.0-45.0); PO2 ABG 78.3 mmHg (80.0-100.0); PO2 FiO2 Ratio Arterial Blood 1.96 %; Reduced Hemoglobin 5.5 %THb (0-5.0); Total Hemoglobin 12.5 g/dL (12.0-18.0); pH ABG 7.382 (7.350-7.450)
[2022-08-28 05:12] LABS: Device VENTILATOR; Modified Allen's Test Pass; Site Drawn RIGHT RADIAL
[2022-08-28 05:13] LABS: Arterial Blood Gas PEEP 5 cmH2O; Arterial Blood Gas Tidal Volume 400 ml; Arterial Blood Gas Vent Mode CMV; Arterial Blood Gas Ventilator rate 18 /MIN
[2022-08-28] MEDS: metroNIDAZOLE 500 MG/ISO 100ML 500 MG/100 ML BAG 100 MG IVPB ×3 (06:22→22:01)
[2022-08-28] MEDS: PROPOFOL IV EMULSION 100 ML 32.14 MG IV CONT ×3 (06:23→20:45)
[2022-08-28] MEDS: amLODIPine BESYLATE 5 MG TABLET 10 MG FEED TUBE (08:15)
[2022-08-28] MEDS: ASPIRIN 325 MG TABLET FEED TUBE (08:15)
[2022-08-28] MEDS: carvediloL 3.125 MG TABLET FEED TUBE ×2 (08:15→20:34)
[2022-08-28] MEDS: PANTOPRAZOLE SODIUM IV 40 MG VIAL IV PUSH (08:16)
[2022-08-28] MEDS: levETIRAcetam 500MG/NACL 100ML 500 MG/100 ML BAG 400 MG IVPB ×2 (08:16→21:12)
--- NOTE | 2022-08-28 08:20 | WPDINTPN ---
Progress Note: A&P Assessment and Plan (1) Acute respiratory failure: Code(s): J96.00 - Acute respiratory failure, unspecified whether with hypoxia or hypercapnia Status: Acute Assessment and Plan: Acute Respiratory failure secondary to cardiac arrest, encephalopathy and pneumonia ABG and chest x-ray reviewed reviewed Continue full mechanical ventilation support to prevent hypoxemia/hypercarbia and end organ damage. ventilator settings reviewed Lasix IV today Low tidal volume ventilation strategy to prevent volutrauma her weaning with the depend on her neurological improvement (2) Anoxic brain injury: Code(s): G93.1 - Anoxic brain damage, not elsewhere classified Status: Acute Assessment and Plan: on presentation patient on holding propofol patient did not exhibit any purposeful movement. she was moving all 4 extremities but appears to be posturing. concerns of anoxic brain injury continue Keppra continue propofol which is currently on hold for sedation holiday patient was down for unknown period of time and also was in non shockable rhythm (asystole/PEA) head CT was negative. Will repeat today patient was placed on moderate TTM on presentation to try to keep patient normothermic. Tylenol and cooling blanket ordered EEG is scheduled Neurology following on review her of discharge summary from 08/20/2022 patient had MRI which did not show any stroke, she had a TTE with bubble study which showed a PFO but no atrial thrombus. 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 Time she was started on Eliquis. will discuss with Neurology. Her head CT on admission was unremarkable for any acute change (3) Cardiac arrest: Code(s): I46.9 - Cardiac arrest, cause unspecified Status: Acute Assessment and Plan: most likely secondary to hypoglycemia although other etiologies are possible hypoglycemia has resolved serial troponin were done and now decreasing. Continue aspirin, beta-jeff No PE and CT scan suggest pneumonia which is being treated with antibiotics cardiology following echoSummary ? 1. Complete two-dimensional, color flow and Doppler transthoracic echocardiogram is performed. ? 2. Left ventricular chamber dimension is normal. ? 3. Left ventricular systolic function is normal, estimated at 60-65%. ? 4. There is moderately increased left ventricular wall thickness. ? 5. The left ventricular diastolic function is grade I diastolic dysfunction. ? 6. Right ventricular systolic function is normal. ? 7. Left atrial chamber dimension is moderately enlarged. ? 8. Right atrial chamber dimension is moderately enlarged. ? 9. There is mild mitral valve regurgitation. ? 10. There is mild tricuspid valve regurgitation. ? 11. Dilated inferior vena cava with <50% collapse upon inspiration consistent with elevated right atrial pressure, 15 mmHg (4) Hypoglycemia: Code(s): E16.2 - Hypoglycemia, unspecified Status: Acute Assessment and Plan: It appears that she has had issues with hypoglycemia in the past and has been admitted at least twice to the hospital with hypoglycemia and then seen in outpatient clinic with similar complaint. her insulin has been adjusted in the past. Per her niece patient takes her insulin like clockwork but she is not sure whether she took her insulin last night. She states the patient takes 40 units of insulin 3 times a day although she was unable to tell me what type of insulin patient takes. this could be accidental overdose with insulin. hypoglycemia has resolved and she is off of dextrose continue tube feeds continue sliding scale insulin hyperglycemia (5) Type 1 diabetes mellitus with hyperglycemia: Code(s): E10.65 - Type 1 diabetes mellitus with hyperglycemia Status: Acute Assessment and Plan: blood sugars are now elevated continue sliding scale insulin (6) Hypertensive h
[2022-08-28 09:33] LABS: Alanine Aminotransferase 96 U/L (6-35); Albumin Level 2.7 g/dL (3.5-5.1); Alkaline Phosphatase 89 U/L (38-126); Anion Gap 2 mmol/L (8-16); Aspartate Amino Transferase 25 U/L (14-36); Bilirubin,Total 0.6 mg/dL (0.2-1.3); Blood Urea Nitrogen 24 mg/dL (7-17); Calcium 8.4 mg/dL (8.4-10.2); Carbon Dioxide 27 mmol/L (22-30); Chloride 112 mmol/L (98-107); Estimated CRCL calculation 81 ml/min; Estimated Glomerular Filt Rate > 60; Glucose 184 mg/dL (65-110); Magnesium 2.1 mg/dL (1.6-2.3); Potassium 3.1 mmol/L (3.4-5.0); Sodium 141 mmol/L (137-145); Triglycerides 181 mg/dL (<150)
--- NOTE | 2022-08-28 10:54 | WPDNEUROPN ---
Progress Note: A&P Assessment and Plan (1) Encephalopathy: Code(s): G93.40 - Encephalopathy, unspecified Status: Acute (2) Anoxic brain injury: Code(s): G93.1 - Anoxic brain damage, not elsewhere classified Status: Acute (3) Cardiac arrest: Code(s): I46.9 - Cardiac arrest, cause unspecified Status: Acute (4) Acute respiratory failure: Code(s): J96.00 - Acute respiratory failure, unspecified whether with hypoxia or hypercapnia Status: Acute (5) Atrial fibrillation: Code(s): I48.91 - Unspecified atrial fibrillation Status: Acute Plan Cassie Sharpe is a 61 year old female with a history of atrial fibrillation, CAD, hypertension, hyperlipidemia, diabetes mellitus type 2, CHF who was found unresponsive s/p cardiac arrest. Patient has not had significant changes in exam since discontinuation of sedation. Concern for anoxic brain injury. As for anticoagulation, unclear why she was started on it earlier this month for middle cerebral artery stenosis with no evidence of stroke noted on MRI from that admission. She does have a history of atrial fibrillation, and based on her her other comorbidities, would be reasonable to continue Eliquis (CHADsVASc score 5). - Will obtain routine EEG to assess background - CT head ordered for today - Continue Keppra 500mg BID Subjective Date/time seen: 08/28/22 10:54 Interval history: Cassie Sharpe is a 61 year old female with a history of atrial fibrillation, hypertension, hyperlipidemia, diabetes mellitus, CHF who was found unresponsive. Patient was found down with insulin syrunge next to her on day of presentation. EMS was called and her blood sugar was in the 60s. She was in PEA, but did have eventual return of circulation by the time she had arrived to [place] ED. It is unclear how long patient was down . In the ED, she was intubated and sedated with propofol. CT head was negative for acute process. She was subsequently admitted to the ICU. There are also concerns for myoclonic type movements so she has been started in maintenance Keppra 500mg BID. Interval history: off sedation today. Repeat CT head and routine EEG scheduled for today. Objective Data Vital Signs Vital Signs: Vital Signs - 24 hr 08/27/22 12:00 08/27/22 12:00 08/27/22 12:00 Temperature 36.7 C Pulse Rate 69 69 Respiratory Rate 20 Blood Pressure 163/66 H Pulse Oximetry 97 Oxygen Delivery Mechanical Ventilation Fraction of Inspired Oxygen 40 08/27/22 14:05 08/27/22 16:37 08/27/22 16:28 Temperature Pulse Rate 66 68 65 Respiratory Rate Blood Pressure Pulse Oximetry 96 95 Oxygen Delivery Mechanical Ventilation Mechanical Ventilation Fraction of Inspired Oxygen 40 40 08/27/22 14:00 08/27/22 16:00 08/27/22 14:00 Temperature Pulse Rate 64 71 63 Respiratory Rate 18 Blood Pressure 155/62 H Pulse Oximetry 97 Oxygen Delivery Fraction of Inspired Oxygen 08/27/22 16:00 08/27/22 16:00 08/27/22 18:00 Temperature 37.0 C Pulse Rate 71 68 66 Respiratory Rate 22 H 22 H Blood Pressure 162/70 H Pulse Oximetry 95 95 Oxygen Delivery Mechanical Ventilation Fraction of Inspired Oxygen 40 08/27/22 18:00 08/27/22 20:15 08/27/22 21:02 Temperature Pulse Rate 66 73 81 Respiratory Rate 21 H Blood Pressure 162/95 H Pulse Oximetry 95 99 Oxygen Delivery Mechanical Ventilation Fraction of Inspired Oxygen 40 08/27/22 21:27 08/27/22 21:32 08/27/22 23:09 Temperature 37.7 C H Pulse Rate 68 58 L Respiratory Rate 18 Blood Pressure Pulse Oximetry Oxygen Delivery Fraction of Inspired Oxygen 08/27/22 23:09 08/27/22 22:27 08/27/22 23:11 Temperature 37.4 C Pulse Rate 58 L 71 Respiratory Rate 19 Blood Pressure Pulse Oximetry 97 Oxygen Delivery Mechanical Ventilation Fraction of Inspired Oxygen 40 08/27/22 20:00 08/27/22 20:30 08/27/22 22:00 [place]
--- NOTE | 2022-08-28 10:56 | WPDNEUROLOGY ---
Neurology EEG Report General Information Date of Study: 08/28/22 TEST Routine EEG DIAGNOSIS Encephalopathy, Anoxic brain injury CONDITION OF RECORDING Unresponsive, comatose EEG NUMBER [id number] CLINICAL HISTORY Patient presented after cardiac arrest. Was down for an unknown period of time and found in PEA. She is currently admitted to the ICU and being mechanically ventilated. Neuro exam has been poor since arrival. There have also been reports of myoclonus type movements. Sedation was discontinued at the time of recording. EEG DESCRIPTION The recording is continuous. The background consist of mostly delta and theta range activity. There is no well defined anterior-posterior gradient. There is intermittent, bifrontal predominant, rhythmic delta activity. No epileptiform discharges or electrographic seizures are noted. Normal sleep architecture was not present. Activation procedures were not performed due to patient's clinical status. IMPRESSION This is an abnormal routine EEG due to the presence of diffuse slowing of the background as well as frontal, intermittent, rhythm delta activity. These findings are suggest of non-specific encephalopathy. Clinical correlation recommended.
--- NOTE | 2022-08-28 11:31 | PCNFU ---
Nutrition Follow-Up Complete: Inadequate protein energy intake related to NPO, increased protein needs from mechanical ventilation as evidenced by mechanical ventilation, need for full tube feeding Goal: Meet estimated protein energy needs We will continue current goal. Pt current nutrition is Vital AF 1.2 at 40 ml/hr. Last recorded weight is 106.6 kg. Bowel Motility:+BM reported 08/27 Labs Reviewed:Hct 34.7,Hgb 11.1, Glu 184, TG 181 Meds Noted:Reglan, Propofol 40 tdnl=769 kcals, Keppra, Vancomycin. Skin:WNL Additional Notes: Patient remains on mechanical vent. Tube feedings of Vital AF 1.2 at 40 ml/hr. Protein Modular of Prosource TID providing additional 120 kcals and 33 gms protein. Propofol additional 848 kcals. Total Nutrition: 2024 kcals/99 gms protein/713 ml water. Meeting nutritional needs at this time. Flush 30 ml q 4 hours. Monitor daily in ICU rounds. Reassessment Tuesdays and Fridays per policy
[2022-08-28 11:52] LABS: Glucose Point of Care 199 mg/dl (65-105)
[2022-08-28] MEDS: FUROSEMIDE INJ 40 MG/4 ML VIAL IV PUSH (11:58)
[2022-08-28] MEDS: PROPOFOL IV EMULSION 100 ML 24.1 MG IV CONT (12:33)
[2022-08-28] MEDS: cloNIDine HCL 0.1 MG TABLET PO (13:49)
[2022-08-28] MEDS: POTASSIUM BICARBONATE 25 MEQ TABEF 50 MEQ FEED TUBE (13:50)
--- NOTE | 2022-08-28 17:03 | PC.NURSE ---
BP REMAINS HIGH. PROPOFOL INCREASED TO 40 MCGS ORDERED FOR HTN. CLONIDINE 0.1 PRN PER TUBE ALREADY GIVEN. WILL GIVE PRN HYDRALAZINE ORDERED.
[2022-08-28 17:17] LABS: Glucose Point of Care 210 mg/dl (65-105)
[2022-08-28] MEDS: hydrALAZINE HCL 20 MG/ML VIAL IV PUSH (17:19)
[2022-08-28] MEDS: POTASSIUM CHLORIDE 20 MEQ PACKET (FOR LIQUID) FEED TUBE (17:19)
[2022-08-28 20:34] LABS: Glucose Point of Care 211 mg/dl (65-105)
[2022-08-28] MEDS: ACETAMINOPHEN 325 MG TABLET 650 MG PO (21:14)
[2022-08-28] MEDS: PROPOFOL IV EMULSION 100 ML 36.15 MG IV CONT (23:05)
[2022-08-28 23:51] LABS: Glucose Point of Care 189 mg/dl (65-105)
[2022-08-29] VITALS (45 sets, daily range): BP systolic 106–218; BP diastolic 57–91; PULSE 56–105; RESP 18–31; TEMP 36.8–38.2; O2SAT 95–98
[2022-08-29 00:37] LABS: Anion Gap 2 mmol/L (8-16); Blood Urea Nitrogen 23 mg/dL (7-17); Calcium 8.2 mg/dL (8.4-10.2); Carbon Dioxide 27 mmol/L (22-30); Chloride 111 mmol/L (98-107); Estimated CRCL calculation 72 ml/min; Estimated Glomerular Filt Rate > 60; Glucose 193 mg/dL (65-110); Potassium 3.3 mmol/L (3.4-5.0); Sodium 140 mmol/L (137-145)
[2022-08-29] MEDS: PROPOFOL IV EMULSION 100 ML 32.14 MG IV CONT ×2 (01:56→04:38)
[2022-08-29 05:37] LABS: Glucose Point of Care 210 mg/dl (65-105)
[2022-08-29] MEDS: INSULIN ASPART (*BKC) 100 UNITS/ML SUB-Q ×5 (05:55→21:12)
[2022-08-29] MEDS: CEFEPIME 2 GM/NS 50 ML 2 GM/50 ML BAG IVPB ×3 (06:04→21:09)
[2022-08-29] MEDS: METOCLOPRAMIDE HCL 10 MG/10 ML SOLN UDC FEED TUBE ×4 (06:05→23:49)
[2022-08-29] MEDS: metroNIDAZOLE 500 MG/ISO 100ML 500 MG/100 ML BAG 100 MG IVPB ×3 (06:05→22:22)
[2022-08-29] MEDS: CENTRAL LINE FLUSH 10 ML IV PUSH ×3 (06:05→20:44)
[2022-08-29 06:16] LABS: Alveolar/Arterial O2 Gradient 115.8 mmHg; Base Excess ABG 0.9 mEq/l (+/-2.0); Carboxyhemoglobin 0.6 % THb (0-2.0); Fractional Inspired Oxygen 35 %; HCO3 ABG 25.9 mEq/l (22.0-26.0); Methemoglobin ABG 0.4 %THb (0-1.5); Oxygen Content ABG 20.1 %vol (16.0-22.0); Oxygen Saturation ABG 96.3 % (95.0-100.0); Oxyhemoglobin 94.9 % THb (90.0-100.0); PCO2 ABG 42.5 mmHg (35.0-45.0); PO2 ABG 84.3 mmHg (80.0-100.0); PO2 FiO2 Ratio Arterial Blood 2.41 %; Reduced Hemoglobin 4.1 %THb (0-5.0); pH ABG 7.403 (7.350-7.450)
[2022-08-29 06:17] LABS: Arterial Blood Gas PEEP 10 cmH2O; Arterial Blood Gas Tidal Volume 400 ml; Arterial Blood Gas Vent Mode CMV; Arterial Blood Gas Ventilator rate 18 /MIN; Device VENTILATOR; Modified Allen's Test Unable to perform; Site Drawn RIGHT RADIAL
[2022-08-29 06:40] LABS: Hematocrit 36.1 % (37.0-47.0); Hemoglobin 12.1 g/dL (12.0-15.0); Mean Corpuscular HGB Conc 33.5 g/dl (32-36); Mean Corpuscular Hemoglobin 31.4 pg (26-34); Mean Corpuscular Volume 93.8 fl (80-100); Mean Platelet Volume 9.9 fl (7.4-10.4); Platelet Count Result 173 k/mm3 (150-375); Red Blood Count 3.85 M/mm3 (4.2-5.4); Red Cell Distribution Width 14.9 % (11.5-14.5)
[2022-08-29] MEDS: PROPOFOL IV EMULSION 100 ML 36.15 MG IV CONT (07:33)
[2022-08-29] MEDS: levETIRAcetam 500MG/NACL 100ML 500 MG/100 ML BAG 400 MG IVPB ×2 (08:48→20:44)
[2022-08-29] MEDS: PANTOPRAZOLE SODIUM IV 40 MG VIAL IV PUSH (08:49)
[2022-08-29] MEDS: ASPIRIN 325 MG TABLET FEED TUBE (08:49)
[2022-08-29] MEDS: carvediloL 3.125 MG TABLET FEED TUBE ×2 (08:49→20:41)
[2022-08-29] MEDS: cloNIDine HCL 0.1 MG TABLET PO ×2 (08:49→16:41)
[2022-08-29 08:50] LABS: Alanine Aminotransferase 55 U/L (6-35); Albumin Level 2.3 g/dL (3.5-5.1); Alkaline Phosphatase 79 U/L (38-126); Anion Gap 2 mmol/L (8-16); Aspartate Amino Transferase 19 U/L (14-36); Bilirubin,Total 0.4 mg/dL (0.2-1.3); Blood Urea Nitrogen 26 mg/dL (7-17); Calcium 8.1 mg/dL (8.4-10.2); Carbon Dioxide 27 mmol/L (22-30); Chloride 111 mmol/L (98-107); Estimated CRCL calculation 72 ml/min; Estimated Glomerular Filt Rate > 60; Glucose 210 mg/dL (65-110); Magnesium 2.1 mg/dL (1.6-2.3); Phosphorus 2.8 mg/dL (2.5-4.5); Potassium 3.4 mmol/L (3.4-5.0); Sodium 140 mmol/L (137-145)
[2022-08-29] MEDS: amLODIPine BESYLATE 5 MG TABLET 10 MG FEED TUBE (08:50)
--- NOTE | 2022-08-29 08:54 | WPDINTPN ---
Progress Note: A&P Assessment and Plan (1) Acute respiratory failure: Code(s): J96.00 - Acute respiratory failure, unspecified whether with hypoxia or hypercapnia Status: Acute Assessment and Plan: Acute Respiratory failure secondary to cardiac arrest, encephalopathy and pneumonia ABG reviewed chest x-ray reviewed reviewed -advance ET tube by 3 cm Continue full mechanical ventilation support to prevent hypoxemia/hypercarbia and end organ damage. ventilator settings reviewed Continue Lasix IV today Low tidal volume ventilation strategy to prevent volutrauma her weaning with the depend on her neurological improvement Chest CT 08/28 IMPRESSION: 1. Left lower lobe collapse and partial collapse of the right lower lobe. Underlying pneumonia not excludable. 2. Groundglass opacities in the left upper lobe and lingula with corresponding volume loss and noncollapsed portion of the right lower lobe and would favor additional less severe atelectasis over pneumonia. 3. Cardiomegaly with enlargement of the central pulmonary arteries consistent with pulmonary arterial hypertension. I have increased her PEEP to 10 to treat the atelectasis I will place her in a position with left side elevated Continue cefepime and Flagyl for pneumonia Will discontinue vancomycin (2) Anoxic brain injury: Code(s): G93.1 - Anoxic brain damage, not elsewhere classified Status: Acute Assessment and Plan: on presentation patient on holding propofol patient did not exhibit any purposeful movement. she was moving all 4 extremities but appears to be posturing. concerns of anoxic brain injury continue Keppra continue propofol which is currently on hold for sedation holiday patient was down for unknown period of time and also was in non shockable rhythm (asystole/PEA) head CT on presentation and repeat on 08/28 was negative for any acute change patient was placed on moderate TTM on presentation to try to keep patient normothermic. Tylenol and cooling blanket ordered EEG 08/28 This is an abnormal routine EEG due to the presence of diffuse slowing of the background as well as frontal, intermittent, rhythm delta activity. These findings are suggest of non-specific encephalopathy. Clinical correlation recommended. Neurology following On Eliquis on review her of discharge summary from 08/20/2022 patient had MRI which did not show any stroke, she had a TTE with bubble study which showed a PFO but no atrial thrombus. 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 Time she was started on Eliquis. will discuss with Neurology. Her head CT on admission was unremarkable for any acute change (3) Cardiac arrest: Code(s): I46.9 - Cardiac arrest, cause unspecified Status: Acute Assessment and Plan: most likely secondary to hypoglycemia although other etiologies are possible hypoglycemia has resolved serial troponin were done and now decreasing. Continue aspirin, beta-jeff No PE and CT scan suggest pneumonia which is being treated with antibiotics cardiology following echo Summary ? 1. Complete two-dimensional, color flow and Doppler transthoracic echocardiogram is performed. ? 2. Left ventricular chamber dimension is normal. ? 3. Left ventricular systolic function is normal, estimated at 60-65%. ? 4. There is moderately increased left ventricular wall thickness. ? 5. The left ventricular diastolic function is grade I diastolic dysfunction. ? 6. Right ventricular systolic function is normal. ? 7. Left atrial chamber dimension is moderately enlarged. ? 8. Right atrial chamber dimension is moderately enlarged. ? 9. There is mild mitral valve regurgitation. ? 10. There is mild tricuspid valve regurgitation. ? 11. Dilated inferior vena cava with <50% collapse upon inspiration consistent with elevated right atrial pressure, 15 mmHg Continue Eliquis and diuresis (4) Hypoglycemia: Code(s): E16.2
[2022-08-29 09:22] LABS: Glucose Point of Care 201 mg/dl (65-105)
[2022-08-29] MEDS: APIXABAN 5 MG TABLET PO ×2 (10:49→20:41)
[2022-08-29] MEDS: hydrALAZINE HCL 20 MG/ML VIAL IV PUSH ×3 (10:51→20:43)
--- NOTE | 2022-08-29 10:58 | WPDNEUROPN ---
Progress Note: A&P Assessment and Plan (1) Encephalopathy: Code(s): G93.40 - Encephalopathy, unspecified Status: Acute (2) Anoxic brain injury: Code(s): G93.1 - Anoxic brain damage, not elsewhere classified Status: Acute (3) Cardiac arrest: Code(s): I46.9 - Cardiac arrest, cause unspecified Status: Acute (4) Acute respiratory failure: Code(s): J96.00 - Acute respiratory failure, unspecified whether with hypoxia or hypercapnia Status: Acute (5) Atrial fibrillation: Code(s): I48.91 - Unspecified atrial fibrillation Status: Acute Plan Cassie Sharpe is a 61 year old female with a history of atrial fibrillation, CAD, hypertension, hyperlipidemia, diabetes mellitus type 2, CHF who was found unresponsive s/p cardiac arrest. Patient has not had significant changes in exam since discontinuation of sedation. Concern for anoxic brain injury. As for anticoagulation, unclear why she was started on it earlier this month for middle cerebral artery stenosis with no evidence of stroke noted on MRI from that admission. She does have a history of atrial fibrillation, and based on her her other comorbidities, would be reasonable to continue Eliquis (CHADsVASc score 5). Clinically, exam is better today, but patient is still quite encephalopathic. - Continue Keppra 500mg BID - Will need MRI brain when able Subjective Date/time seen: 08/29/22 10:58 Interval history: Cassie Sharpe is a 61 year old female with a history of atrial fibrillation, hypertension, hyperlipidemia, diabetes mellitus, CHF who was found unresponsive. Patient was found down with insulin syrunge next to her on day of presentation. EMS was called and her blood sugar was in the 60s. She was in PEA, but did have eventual return of circulation by the time she had arrived to [place] ED. It is unclear how long patient was down . In the ED, she was intubated and sedated with propofol. CT head was negative for acute process. She was subsequently admitted to the ICU. There are also concerns for myoclonic type movements so she has been started in maintenance Keppra 500mg BID. Interval history: Off sedation. Repeat head CT from yesterday was normal. Review of Systems Review of Systems: ROS unobtainable: Yes unobtainable due to endotracheal tube, unobtainable due to medical condition and unobtainable due to mental status Exam Const: General: comfortable HENMT: Mouth: Yes moist mucous membranes Eyes: Pupils: Equal, round and reactive pupils present EOM: EOMs intact bilaterally Resp: Other: mechanical ventilation, intubated Skin: General skin exam: normal color Neuro: Other: Eyes spontaneously open, PERRL, conjugate eye movements but does not appear to track. Does not follow commands, no spontaneous movement of the extremities noted, she did grimace to noxious stimuli but did not withdraw or localize. Extrem: General: normal to inspection Objective Data Vital Signs Vital Signs: Vital Signs - 24 hr 08/28/22 11:52 08/28/22 12:19 08/28/22 12:33 Temperature 37.2 C Pulse Rate 64 68 68 Respiratory Rate 18 21 H 21 H Blood Pressure 155/65 H Pulse Oximetry 91 Oxygen Delivery Fraction of Inspired Oxygen 08/28/22 12:00 08/28/22 12:00 08/28/22 11:46 Temperature Pulse Rate 67 67 Respiratory Rate 21 H Blood Pressure Pulse Oximetry 93 Oxygen Delivery Mechanical Ventilation Mechanical Ventilation Fraction of Inspired Oxygen 40 40 08/28/22 14:00 08/28/22 14:00 08/28/22 16:00 Temperature 37.7 C H Pulse Rate 72 72 62 Respiratory Rate 18 Blood Pressure 116/81 Pulse Oximetry 97 Oxygen Delivery Fraction of Inspired Oxygen 08/28/22 16:00 08/28/22 16:00 08/28/22 12:00 Temperature 37.7 C H Pulse Rate 62 62 Respiratory Rate 19 19 Blood Pressure 159/81 H Pulse Oximetry 96 96 Oxygen Delivery Mechanical Ventilation Fraction of Inspired Oxygen 40 40
[2022-08-29 12:23] LABS: Glucose Point of Care 247 mg/dl (65-105)
[2022-08-29 16:54] LABS: Glucose Point of Care 254 mg/dl (65-105)
[2022-08-29] MEDS: lisinopriL 20 MG TABLET FEED TUBE (17:32)
[2022-08-29] MEDS: ACETAMINOPHEN 325 MG TABLET 650 MG PO ×2 (17:51→20:41)
[2022-08-29 21:22] LABS: Glucose Point of Care 258 mg/dl (65-105)
[2022-08-30] VITALS (29 sets, daily range): BP systolic 117–203; BP diastolic 56–102; PULSE 63–100; RESP 18–27; TEMP 36.5–37.7; O2SAT 95–98
[2022-08-30] MEDS: cloNIDine HCL 0.1 MG TABLET PO ×2 (00:49→08:38)
[2022-08-30] MEDS: INSULIN ASPART (*BKC) 100 UNITS/ML SUB-Q ×6 (00:52→23:29)
[2022-08-30 00:59] LABS: Glucose Point of Care 216 mg/dl (65-105)
[2022-08-30] MEDS: hydrALAZINE HCL 20 MG/ML VIAL IV PUSH ×2 (03:40→11:06)
[2022-08-30] MEDS: PROPOFOL IV EMULSION 100 ML 4.02 MG IV CONT (05:07)
[2022-08-30 05:18] LABS: Alveolar/Arterial O2 Gradient 85.7 mmHg; Base Excess ABG 1.2 mEq/l (+/-2.0); Fractional Inspired Oxygen 30 %; HCO3 ABG 25.5 mEq/l (22.0-26.0); Methemoglobin ABG 0.3 %THb (0-1.5); Oxygen Saturation ABG 96.3 % (95.0-100.0); Oxyhemoglobin 95.4 % THb (90.0-100.0); PCO2 ABG 39.5 mmHg (35.0-45.0); PO2 ABG 81.8 mmHg (80.0-100.0); PO2 FiO2 Ratio Arterial Blood 2.73 %; Reduced Hemoglobin 4.3 %THb (0-5.0); Total Hemoglobin 12.6 g/dL (12.0-18.0); pH ABG 7.428 (7.350-7.450)
[2022-08-30 05:18] LABS: Alanine Aminotransferase 47 U/L (6-35); Albumin Level 2.5 g/dL (3.5-5.1); Alkaline Phosphatase 82 U/L (38-126); Anion Gap 0 mmol/L (8-16); Aspartate Amino Transferase 24 U/L (14-36); Bilirubin,Total 0.5 mg/dL (0.2-1.3); Blood Urea Nitrogen 46 mg/dL (7-17); Calcium 8.5 mg/dL (8.4-10.2); Carbon Dioxide 28 mmol/L (22-30); Chloride 110 mmol/L (98-107); Estimated CRCL calculation 65 ml/min; Estimated Glomerular Filt Rate 56; Glucose 286 mg/dL (65-110); Magnesium 2.4 mg/dL (1.6-2.3); Phosphorus 3.1 mg/dL (2.5-4.5); Potassium 3.4 mmol/L (3.4-5.0); Sodium 138 mmol/L (137-145); Triglycerides 267 mg/dL (<150)
[2022-08-30 05:19] LABS: Arterial Blood Gas Ventilator rate 18 /MIN; Device VENTILATOR; Modified Allen's Test Pass; Site Drawn RIGHT RADIAL
[2022-08-30 05:19] LABS: Glucose Point of Care 288 mg/dl (65-105)
[2022-08-30 05:20] LABS: Arterial Blood Gas PEEP 10 cmH2O; Arterial Blood Gas Tidal Volume 400 ml; Arterial Blood Gas Vent Mode CMV
[2022-08-30] MEDS: CEFEPIME 2 GM/NS 50 ML 2 GM/50 ML BAG IVPB ×3 (05:32→22:22)
[2022-08-30] MEDS: METOCLOPRAMIDE HCL 10 MG/10 ML SOLN UDC FEED TUBE ×3 (05:33→17:40)
[2022-08-30 06:24] LABS: Hematocrit 36.5 % (37.0-47.0); Hemoglobin 11.6 g/dL (12.0-15.0); Mean Corpuscular HGB Conc 31.8 g/dl (32-36); Mean Corpuscular Hemoglobin 28.8 pg (26-34); Mean Corpuscular Volume 90.6 fl (80-100); Platelet Count Result 202 k/mm3 (150-375); Red Blood Count 4.03 M/mm3 (4.2-5.4); Red Cell Distribution Width 15.4 % (11.5-14.5); White Blood Count 11.4 K/mm3 (4.5-10.0)
[2022-08-30] MEDS: metroNIDAZOLE 500 MG/ISO 100ML 500 MG/100 ML BAG 100 MG IVPB ×3 (06:25→22:22)
[2022-08-30] MEDS: CENTRAL LINE FLUSH 10 ML IV PUSH ×3 (06:26→22:22)
[2022-08-30] MEDS: POTASSIUM BICARBONATE 25 MEQ TABEF 50 MEQ FEED TUBE (08:38)
[2022-08-30] MEDS: APIXABAN 5 MG TABLET PO ×2 (08:39→21:00)
[2022-08-30] MEDS: levETIRAcetam 500MG/NACL 100ML 500 MG/100 ML BAG 400 MG IVPB ×2 (08:39→21:00)
[2022-08-30] MEDS: PANTOPRAZOLE SODIUM IV 40 MG VIAL IV PUSH (08:39)
[2022-08-30] MEDS: ASPIRIN 325 MG TABLET FEED TUBE (08:39)
[2022-08-30] MEDS: carvediloL 3.125 MG TABLET FEED TUBE (08:39)
[2022-08-30] MEDS: amLODIPine BESYLATE 5 MG TABLET 10 MG FEED TUBE (08:40)
[2022-08-30] MEDS: INSULIN GLARGINE (*BKC) 100 UNITS/ML 15 UNITS SUB-Q (08:46)
[2022-08-30 08:59] LABS: Glucose Point of Care 249 mg/dl (65-105)
--- NOTE | 2022-08-30 09:03 | WPDINTPN ---
Progress Note: A&P Assessment and Plan (1) Acute respiratory failure: Code(s): J96.00 - Acute respiratory failure, unspecified whether with hypoxia or hypercapnia Status: Acute Assessment and Plan: Acute Respiratory failure secondary to cardiac arrest, encephalopathy and pneumonia ABG reviewed chest x-ray reviewed reviewed -advance ET tube by 3 cm Continue full mechanical ventilation support to prevent hypoxemia/hypercarbia and end organ damage. ventilator settings reviewed Continue Lasix IV today Low tidal volume ventilation strategy to prevent volutrauma her weaning with the depend on her neurological improvement Chest CT 08/28 IMPRESSION: 1. Left lower lobe collapse and partial collapse of the right lower lobe. Underlying pneumonia not excludable. 2. Groundglass opacities in the left upper lobe and lingula with corresponding volume loss and noncollapsed portion of the right lower lobe and would favor additional less severe atelectasis over pneumonia. 3. Cardiomegaly with enlargement of the central pulmonary arteries consistent with pulmonary arterial hypertension. I have increased her PEEP to 10 to treat the atelectasis I will place her in a position with left side elevated Continue cefepime and Flagyl for pneumonia Will discontinue vancomycin (2) Anoxic brain injury: Code(s): G93.1 - Anoxic brain damage, not elsewhere classified Status: Acute Assessment and Plan: on presentation patient on holding propofol patient did not exhibit any purposeful movement. she was moving all 4 extremities but appears to be posturing. patient was down for unknown period of time and also was in non shockable rhythm (asystole/PEA) head CT on presentation and repeat on 08/28 was negative for any acute change patient was placed on moderate TTM on presentation to try to keep patient normothermic. Tylenol and cooling blanket ordered EEG 08/28 This is an abnormal routine EEG due to the presence of diffuse slowing of the background as well as frontal, intermittent, rhythm delta activity. These findings are suggest of non-specific encephalopathy. Clinical correlation recommended. Her neuro exam has not significantly improved which confirms the patient has anoxic brain injury continue Keppra continue propofol as needed which is currently on hold for sedation holiday Neurology following On Eliquis on review her of discharge summary from 08/20/2022 patient had MRI which did not show any stroke, she had a TTE with bubble study which showed a PFO but no atrial thrombus. 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 Time she was started on Eliquis. will discuss with Neurology. Her head CT on admission was unremarkable for any acute change (3) Cardiac arrest: Code(s): I46.9 - Cardiac arrest, cause unspecified Status: Acute Assessment and Plan: most likely secondary to hypoglycemia although other etiologies are possible hypoglycemia has resolved serial troponin were done and now decreasing. Continue aspirin, beta-jeff No PE and CT scan suggest pneumonia which is being treated with antibiotics cardiology following echo Summary ? 1. Complete two-dimensional, color flow and Doppler transthoracic echocardiogram is performed. ? 2. Left ventricular chamber dimension is normal. ? 3. Left ventricular systolic function is normal, estimated at 60-65%. ? 4. There is moderately increased left ventricular wall thickness. ? 5. The left ventricular diastolic function is grade I diastolic dysfunction. ? 6. Right ventricular systolic function is normal. ? 7. Left atrial chamber dimension is moderately enlarged. ? 8. Right atrial chamber dimension is moderately enlarged. ? 9. There is mild mitral valve regurgitation. ? 10. There is mild tricuspid valve regurgitation. ? 11. Dilated inferior vena cava with <50% collapse upon inspiration consistent with elevated right atrial pressure, 15 mm
[2022-08-30] MEDS: FUROSEMIDE INJ 40 MG/4 ML VIAL IV PUSH (10:27)
[2022-08-30 12:39] LABS: Glucose Point of Care 272 mg/dl (65-105)
--- NOTE | 2022-08-30 14:54 | P.PNIM_ITS ---
Progress Note: A&P Assessment and Plan (1) Acute respiratory failure: Code(s): J96.00 - Acute respiratory failure, unspecified whether with hypoxia or hypercapnia Status: Acute Assessment and Plan: Acute Respiratory failure secondary to cardiac arrest, encephalopathy and pneumonia ABG reviewed chest x-ray reviewed reviewed -advance ET tube by 3 cm Continue full mechanical ventilation support to prevent hypoxemia/hypercarbia and end organ damage. ventilator settings reviewed Continue Lasix IV today Low tidal volume ventilation strategy to prevent volutrauma her weaning with the depend on her neurological improvement Chest CT 08/28 IMPRESSION: 1. Left lower lobe collapse and partial collapse of the right lower lobe. Underlying pneumonia not excludable. 2. Groundglass opacities in the left upper lobe and lingula with corresponding volume loss and noncollapsed portion of the right lower lobe and would favor additional less severe atelectasis over pneumonia. 3. Cardiomegaly with enlargement of the central pulmonary arteries consistent with pulmonary arterial hypertension. I have increased her PEEP to 10 to treat the atelectasis I will place her in a position with left side elevated Continue cefepime and Flagyl for pneumonia Will discontinue vancomycin (2) Anoxic brain injury: Code(s): G93.1 - Anoxic brain damage, not elsewhere classified Status: Acute Assessment and Plan: on presentation patient on holding propofol patient did not exhibit any purposeful movement. she was moving all 4 extremities but appears to be posturing. patient was down for unknown period of time and also was in non shockable rhythm (asystole/PEA) head CT on presentation and repeat on 08/28 was negative for any acute change patient was placed on moderate TTM on presentation to try to keep patient normothermic. Tylenol and cooling blanket ordered EEG 08/28 This is an abnormal routine EEG due to the presence of diffuse slowing of the background as well as frontal, intermittent, rhythm delta activity. These findings are suggest of non-specific encephalopathy. Clinical correlation recommended. Her neuro exam has not significantly improved which confirms the patient has anoxic brain injury continue Keppra continue propofol as needed which is currently on hold for sedation holiday Neurology following On Eliquis on review her of discharge summary from 08/20/2022 patient had MRI which did not show any stroke, she had a TTE with bubble study which showed a PFO but no atrial thrombus. 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 Time she was started on Eliquis. will discuss with Neurology. Her head CT on admission was unremarkable for any acute change (3) Cardiac arrest: Code(s): I46.9 - Cardiac arrest, cause unspecified Status: Acute Assessment and Plan: most likely secondary to hypoglycemia although other etiologies are possible hypoglycemia has resolved serial troponin were done and now decreasing. Continue aspirin, beta-jeff No PE and CT scan suggest pneumonia which is being treated with antibiotics cardiology following echo Summary ? 1. Complete two-dimensional, color flow and Doppler transthoracic echocardiogram is performed. ? 2. Left ventricular chamber dimension is normal. ? 3. Left ventricular systolic function is normal, estimated at 60-65%. ? 4. There is moderately increased left ventricular wall thickness. ? 5. The left ventricular diastolic function is grade I diastolic dysfunction. ? 6. Right ventricular systolic function is normal. ? 7. Le
[2022-08-30] MEDS: cloNIDine HCL 0.2 MG TABLET PO ×2 (16:20→21:20)
[2022-08-30 16:52] LABS: Glucose Point of Care 286 mg/dl (65-105)
[2022-08-30] MEDS: lisinopriL 20 MG TABLET 40 MG FEED TUBE (17:40)
[2022-08-30] MEDS: carvediloL 6.25 MG TABLET FEED TUBE (21:00)
[2022-08-30 22:31] LABS: Glucose Point of Care 283 mg/dl (65-105)
[2022-08-31] VITALS (30 sets, daily range): BP systolic 131–216; BP diastolic 60–114; PULSE 59–98; RESP 18–24; TEMP 36.6–37.3; O2SAT 93–97
[2022-08-31] MEDS: METOCLOPRAMIDE HCL 10 MG/10 ML SOLN UDC FEED TUBE ×4 (00:08→17:30)
--- NOTE | 2022-08-31 00:09 | PC.NURSE ---
[facility] case number for nutritional services host/family of patient [id number]
[2022-08-31 05:08] LABS: Basophils Absolute Auto 0.1 K/mm3 (0.0-0.1); Basophils Percent Auto 0.6 % (0.2-1.2); Eosinophils Absolute Auto 0.5 K/mm3 (0-0.3); Hematocrit 36.2 % (37.0-47.0); Hemoglobin 11.3 g/dL (12.0-15.0); Immature Granulocyte Absolute 0.21 K/mm3 (0.00-0.031); Immature Granulocyte Percent A 1.8 % (0-0.5); Lymphocytes Absolute Auto 2.19 K/mm3 (0.9-3.2); Lymphocytes Percent Auto 18.8 % (18.3-44.2); Mean Corpuscular HGB Conc 31.2 g/dl (32-36); Mean Corpuscular Hemoglobin 28.8 pg (26-34); Mean Corpuscular Volume 92.1 fl (80-100); Mean Platelet Volume 9.6 fl (7.4-10.4); Monocytes Absolute Auto 0.8 K/mm3 (0.1-0.6); Monocytes Percent Auto 6.8 % (2.6-8.5); Neutrophils Absolute Auto 7.9 K/mm3 (1.3-6.7); Platelet Count Result 234 k/mm3 (150-375); Red Blood Count 3.93 M/mm3 (4.2-5.4); Red Cell Distribution Width 15.5 % (11.5-14.5); White Blood Count 11.7 K/mm3 (4.5-10.0)
[2022-08-31 05:31] LABS: Alanine Aminotransferase 40 U/L (6-35); Albumin Level 2.5 g/dL (3.5-5.1); Alkaline Phosphatase 78 U/L (38-126); Anion Gap -2 mmol/L (8-16); Aspartate Amino Transferase 25 U/L (14-36); Bilirubin,Total 0.5 mg/dL (0.2-1.3); Blood Urea Nitrogen 65 mg/dL (7-17); Carbon Dioxide 30 mmol/L (22-30); Chloride 112 mmol/L (98-107); Estimated CRCL calculation 66 ml/min; Estimated Glomerular Filt Rate 56; Glucose 304 mg/dL (65-110); Magnesium 2.8 mg/dL (1.6-2.3); Phosphorus 3.5 mg/dL (2.5-4.5); Potassium 3.7 mmol/L (3.4-5.0); Sodium 140 mmol/L (137-145)
[2022-08-31] MEDS: INSULIN ASPART (*BKC) 100 UNITS/ML SUB-Q ×5 (05:36→20:27)
[2022-08-31] MEDS: CEFEPIME 2 GM/NS 50 ML 2 GM/50 ML BAG IVPB ×3 (05:37→21:12)
[2022-08-31] MEDS: cloNIDine HCL 0.2 MG TABLET PO (05:37)
[2022-08-31] MEDS: CENTRAL LINE FLUSH 10 ML IV PUSH ×3 (05:37→20:28)
[2022-08-31 05:41] LABS: Alveolar/Arterial O2 Gradient 52.4 mmHg; Base Excess ABG -0.3 mEq/l (+/-2.0); Carboxyhemoglobin 0.3 % THb (0-2.0); Fractional Inspired Oxygen 30 %; HCO3 ABG 24.2 mEq/l (22.0-26.0); Methemoglobin ABG 0.3 %THb (0-1.5); Oxygen Content ABG 16.8 %vol (16.0-22.0); Oxygen Saturation ABG 98.3 % (95.0-100.0); Oxyhemoglobin 96.9 % THb (90.0-100.0); PO2 ABG 115.7 mmHg (80.0-100.0); PO2 FiO2 Ratio Arterial Blood 3.86 %; Reduced Hemoglobin 2.5 %THb (0-5.0); Total Hemoglobin 12.2 g/dL (12.0-18.0); pH ABG 7.411 (7.350-7.450)
[2022-08-31 05:42] LABS: Arterial Blood Gas Vent Mode CMV; Arterial Blood Gas Ventilator rate 18 /MIN; Device VENTILATOR; Modified Allen's Test Pass; Site Drawn RIGHT RADIAL
[2022-08-31 05:43] LABS: Arterial Blood Gas PEEP 10 cmH2O; Arterial Blood Gas Tidal Volume 400 ml
[2022-08-31] MEDS: metroNIDAZOLE 500 MG/ISO 100ML 500 MG/100 ML BAG 100 MG IVPB ×3 (07:01→23:00)
[2022-08-31] MEDS: PANTOPRAZOLE SODIUM IV 40 MG VIAL IV PUSH (08:00)
[2022-08-31] MEDS: ASPIRIN 325 MG TABLET FEED TUBE (08:00)
[2022-08-31] MEDS: APIXABAN 5 MG TABLET PO ×2 (08:00→20:15)
[2022-08-31] MEDS: amLODIPine BESYLATE 5 MG TABLET 10 MG FEED TUBE (08:01)
[2022-08-31] MEDS: carvediloL 6.25 MG TABLET FEED TUBE ×2 (08:01→20:15)
[2022-08-31] MEDS: levETIRAcetam 500MG/NACL 100ML 500 MG/100 ML BAG 400 MG IVPB ×2 (08:07→20:14)
[2022-08-31] MEDS: INSULIN GLARGINE (*BKC) 100 UNITS/ML 25 UNITS SUB-Q (08:10)
[2022-08-31 08:22] LABS: Glucose Point of Care 280 mg/dl (65-105)
--- NOTE | 2022-08-31 08:46 | WPDINTPN ---
Progress Note: A&P Assessment and Plan (1) Acute respiratory failure: Code(s): J96.00 - Acute respiratory failure, unspecified whether with hypoxia or hypercapnia Status: Acute Assessment and Plan: Acute Respiratory failure secondary to cardiac arrest, encephalopathy and pneumonia ABG reviewed chest x-ray reviewed reviewed Continue full mechanical ventilation support to prevent hypoxemia/hypercarbia and end organ damage. ABG and ventilator settings reviewed Low tidal volume ventilation strategy to prevent volutrauma Ventilator weaning with the depend on her neurological improvement Chest CT 08/28 IMPRESSION: 1. Left lower lobe collapse and partial collapse of the right lower lobe. Underlying pneumonia not excludable. 2. Groundglass opacities in the left upper lobe and lingula with corresponding volume loss and noncollapsed portion of the right lower lobe and would favor additional less severe atelectasis over pneumonia. 3. Cardiomegaly with enlargement of the central pulmonary arteries consistent with pulmonary arterial hypertension. Her atelectasis has significantly improved on the chest x-ray. I will decrease the PEEP down to 8 Continue cefepime and Flagyl for pneumonia Off vancomycin (2) Anoxic brain injury: Code(s): G93.1 - Anoxic brain damage, not elsewhere classified Status: Acute Assessment and Plan: On presentation patient on holding propofol patient she did not exhibit any purposeful movement. She was moving all 4 extremities but appears to be posturing. Patient was down for unknown period of time and also was in non shockable rhythm (asystole/PEA) Head CT on presentation and repeat on 08/28 was negative for any acute change Patient was placed on moderate TTM on presentation to try to keep patient normothermic. Tylenol and cooling blanket ordered EEG 08/28 This is an abnormal routine EEG due to the presence of diffuse slowing of the background as well as frontal, intermittent, rhythm delta activity. These findings are suggest of non-specific encephalopathy. Clinical correlation recommended. Her neuro exam has not significantly improved which confirms the patient has anoxic brain injury Continue Keppra Completely off propofol at this time Neurology following On Eliquis on review her of discharge summary from 08/20/2022 patient had MRI which did not show any stroke, she had a TTE with bubble study which showed a PFO but no atrial thrombus. 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 Time she was started on Eliquis. will discuss with Neurology. Her head CT on admission was unremarkable for any acute change (3) Cardiac arrest: Code(s): I46.9 - Cardiac arrest, cause unspecified Status: Acute Assessment and Plan: most likely secondary to hypoglycemia although other etiologies are possible hypoglycemia has resolved serial troponin were done and now decreasing. Continue aspirin, beta-jeff No PE and CT scan suggest pneumonia which is being treated with antibiotics cardiology following echo Summary ? 1. Complete two-dimensional, color flow and Doppler transthoracic echocardiogram is performed. ? 2. Left ventricular chamber dimension is normal. ? 3. Left ventricular systolic function is normal, estimated at 60-65%. ? 4. There is moderately increased left ventricular wall thickness. ? 5. The left ventricular diastolic function is grade I diastolic dysfunction. ? 6. Right ventricular systolic function is normal. ? 7. Left atrial chamber dimension is moderately enlarged. ? 8. Right atrial chamber dimension is moderately enlarged. ? 9. There is mild mitral valve regurgitation. ? 10. There is mild tricuspid valve regurgitation. ? 11. Dilated inferior vena cava with <50% collapse upon inspiration consistent with elevated right atrial pressure, 15 mmHg Continue Eliquis and diuresis (4) Hypoglycemia: Code(s): E16.2 - Hypoglycemia, unspecified
[2022-08-31] MEDS: POTASSIUM BICARBONATE 25 MEQ TABEF FEED TUBE (11:05)
--- NOTE | 2022-08-31 11:33 | PCFNICU ---
ICU Rounding Note: Pt current nutrition is Vital AF 1.2 at 40 ml/hr. Nutrition recommendation: Goal rate at 60 ml/hr Last recorded weight is 108.2 kg. Bowel Motility: +Bm reported 08/31 Labs Reviewed:Glu 304, GFR 55, BUN 65, Alb 2.5 Meds Noted:Reglan, Lantus, Eliquis, Lisinopril,Keppra Skin: WNL Additional Notes: Patient remains on mechanical vent. No sedation at this time. Tube feedings being tolerated at 40ml/hr. Now orders for goal rate of Vital AF 1.2 at 60 ml/hr. Prosource to be discontinued. Flush 30 ml q 4 hours. Agree with diet orders. Following daily in ICU rounds. Monitor daily in ICU rounds. Reassessment Tuesdays and Fridays per policy.
[2022-08-31 12:36] LABS: Glucose Point of Care 254 mg/dl (65-105)
[2022-08-31] MEDS: hydrALAZINE HCL 20 MG/ML VIAL IV PUSH ×3 (13:09→21:15)
[2022-08-31] MEDS: cloNIDine HCL 0.1 MG TABLET 0.3 MG PO ×2 (13:39→21:12)
--- NOTE | 2022-08-31 16:05 | PM.IMPN ---
Progress Note: A&P Assessment and Plan (1) Acute respiratory failure: Code(s): J96.00 - Acute respiratory failure, unspecified whether with hypoxia or hypercapnia Status: Acute Assessment and Plan: Acute Respiratory failure secondary to cardiac arrest, encephalopathy and pneumonia (2) Anoxic brain injury: Code(s): G93.1 - Anoxic brain damage, not elsewhere classified Status: Acute Assessment and Plan: On presentation patient on holding propofol patient did not exhibit any purposeful movement. she was moving all 4 extremities but appears to be posturing. unfortunately EEG shows anoxic brain injury Continue [facility] neurology following (3) Cardiac arrest: Code(s): I46.9 - Cardiac arrest, cause unspecified Status: Acute Assessment and Plan: most likely secondary to hypoglycemia although other etiologies are possible hypoglycemia has resolved prolonged cardiac arrest several arrests (4) Hypoglycemia: Code(s): E16.2 - Hypoglycemia, unspecified Status: Acute Assessment and Plan: It appears that she has had issues with hypoglycemia in the past and has been admitted at least twice to the hospital with hypoglycemia and then seen in outpatient clinic with similar complaint. her insulin has been adjusted in the past. Per her niece patient takes her insulin like clockwork but she is not sure whether she took her insulin last night. She states the patient takes 40 units of insulin 3 times a day . possible accidental overdose with insulin. (5) Type 1 diabetes mellitus with hyperglycemia: Code(s): E10.65 - Type 1 diabetes mellitus with hyperglycemia Status: Acute Assessment and Plan: continue sliding scale insulin (6) Hypertensive heart disease with heart failure: Code(s): I11.0 - Hypertensive heart disease with heart failure Status: Acute Assessment and Plan: continue p.r.n. hydralazine Continue lasix IV today (7) Chronic systolic (congestive) heart failure: Code(s): I50.22 - Chronic systolic (congestive) heart failure Status: Acute Assessment and Plan: pt is on lisinopril (8) Elevated troponin: Code(s): R77.8 - Other specified abnormalities of plasma proteins Status: Acute Assessment and Plan: See above (9) Pneumonia: Code(s): J18.9 - Pneumonia, unspecified organism Status: Acute Assessment and Plan: CT since suggest pneumonia with elevated WBC count. this could be aspiration continue cefepime (10) Swelling of right lower extremity: Code(s): M79.89 - Other specified soft tissue disorders Status: Acute Assessment and Plan: chronic swelling in right lower extremity as per review of her records (11) Electrolyte abnormality: Code(s): E87.8 - Other disorders of electrolyte and fluid balance, not elsewhere classified Status: Acute Assessment and Plan: Replace low potassium Plan Subjective Date/time seen: 08/31/22 16:05 Patient was intubated and sedated at bedside at the time of this encounter, HPI from ER documentation and nurse's report that patient was found on the floor with insulin syringe beside her, BG was in 60s and patient went into asytole and resuscitated with ACLS protocol. Had PEA arrest enroute to the ER and was resuscitated. most likely secondary to hypoglycemia although other? etiologies are possible Hypoglycemia?has resolved possible overdose with insulin. Long cardiac arrest, now pt found to have Anoxic brain injury from EEG. Pts son is coming from [place] to see his mother Review of Systems Review of Systems: ROS unobtainable: Yes unobtainable due to endotracheal tube, unobtainable due to medical condition and unobtainable due to mental status Exam Narrative: General: Pt is sedated, intubated and on mechanical ventilation Lungs/Chest: Decreased br
[2022-08-31] MEDS: hydrALAZINE HCL 25 MG TABLET FEED TUBE ×2 (16:09→20:15)
[2022-08-31 16:37] LABS: Glucose Point of Care 250 mg/dl (65-105)
[2022-08-31] MEDS: lisinopriL 20 MG TABLET 40 MG FEED TUBE (17:30)
[2022-08-31 20:49] LABS: Glucose Point of Care 279 mg/dl (65-105)
[2022-09-01] VITALS (21 sets, daily range): BP systolic 135–190; BP diastolic 60–88; PULSE 60–96; RESP 18–20; TEMP 36.6–37.6; O2SAT 95–99
[2022-09-01] MEDS: METOCLOPRAMIDE HCL 10 MG/10 ML SOLN UDC FEED TUBE ×4 (00:11→17:11)
[2022-09-01] MEDS: INSULIN ASPART (*BKC) 100 UNITS/ML SUB-Q ×6 (00:12→20:05)
[2022-09-01 00:21] LABS: Glucose Point of Care 255 mg/dl (65-105)
[2022-09-01] MEDS: hydrALAZINE HCL 20 MG/ML VIAL IV PUSH ×2 (03:15→10:13)
[2022-09-01 04:40] LABS: Hematocrit 35.7 % (37.0-47.0); Hemoglobin 11.2 g/dL (12.0-15.0); Mean Corpuscular HGB Conc 31.4 g/dl (32-36); Mean Corpuscular Hemoglobin 29.2 pg (26-34); Mean Corpuscular Volume 93.2 fl (80-100); Mean Platelet Volume 9.5 fl (7.4-10.4); Platelet Count Result 239 k/mm3 (150-375); Red Blood Count 3.83 M/mm3 (4.2-5.4); Red Cell Distribution Width 15.5 % (11.5-14.5); White Blood Count 11.4 K/mm3 (4.5-10.0)
[2022-09-01 04:52] LABS: Alanine Aminotransferase 32 U/L (6-35); Albumin Level 2.6 g/dL (3.5-5.1); Alkaline Phosphatase 67 U/L (38-126); Anion Gap 0 mmol/L (8-16); Aspartate Amino Transferase 24 U/L (14-36); Bilirubin,Total 0.5 mg/dL (0.2-1.3); Blood Urea Nitrogen 71 mg/dL (7-17); Calcium 9.9 mg/dL (8.4-10.2); Carbon Dioxide 31 mmol/L (22-30); Chloride 112 mmol/L (98-107); Estimated CRCL calculation 81 ml/min; Estimated Glomerular Filt Rate > 60; Glucose 235 mg/dL (65-110); Magnesium 2.8 mg/dL (1.6-2.3); Potassium 4.8 mmol/L (3.4-5.0); Sodium 143 mmol/L (137-145); Triglycerides 254 mg/dL (<150)
[2022-09-01] MEDS: CEFEPIME 2 GM/NS 50 ML 2 GM/50 ML BAG IVPB ×3 (05:33→22:00)
[2022-09-01] MEDS: cloNIDine HCL 0.1 MG TABLET 0.3 MG PO ×3 (05:34→21:06)
[2022-09-01] MEDS: CENTRAL LINE FLUSH 10 ML IV PUSH ×3 (05:34→21:06)
[2022-09-01] MEDS: metroNIDAZOLE 500 MG/ISO 100ML 500 MG/100 ML BAG 100 MG IVPB ×3 (07:14→23:00)
[2022-09-01] MEDS: PANTOPRAZOLE SODIUM IV 40 MG VIAL IV PUSH (08:17)
[2022-09-01] MEDS: carvediloL 6.25 MG TABLET FEED TUBE ×2 (08:19→20:05)
[2022-09-01] MEDS: hydrALAZINE HCL 25 MG TABLET FEED TUBE (08:19)
[2022-09-01] MEDS: APIXABAN 5 MG TABLET PO ×2 (08:19→20:05)
[2022-09-01] MEDS: amLODIPine BESYLATE 5 MG TABLET 10 MG FEED TUBE (08:19)
[2022-09-01] MEDS: ASPIRIN 325 MG TABLET FEED TUBE (08:20)
[2022-09-01] MEDS: levETIRAcetam 500MG/NACL 100ML 500 MG/100 ML BAG 400 MG IVPB ×2 (08:20→20:06)
--- NOTE | 2022-09-01 08:20 | WPDINTPN ---
Progress Note: A&P Assessment and Plan (1) Acute respiratory failure: Code(s): J96.00 - Acute respiratory failure, unspecified whether with hypoxia or hypercapnia Status: Acute Assessment and Plan: Acute Respiratory failure secondary to cardiac arrest, encephalopathy and pneumonia. Intubated on 08/27/2019 -currently on CMV mode of ventilation -chest x-ray this morning: Probable central congestive changes and possible minimal central pulmonary edema. -Continue full mechanical ventilation support to prevent hypoxemia/hypercarbia and end organ damage. -ABG and ventilator settings reviewed -Low tidal volume ventilation strategy to prevent volutrauma -Ventilator weaning with the depend on her neurological improvement Chest CT 08/28 IMPRESSION: 1. Left lower lobe collapse and partial collapse of the right lower lobe. Underlying pneumonia not excludable. 2. Groundglass opacities in the left upper lobe and lingula with corresponding volume loss and noncollapsed portion of the right lower lobe and would favor additional less severe atelectasis over pneumonia. 3. Cardiomegaly with enlargement of the central pulmonary arteries consistent with pulmonary arterial hypertension. Continue cefepime and Flagyl for pneumonia Off vancomycin (2) Anoxic brain injury: Code(s): G93.1 - Anoxic brain damage, not elsewhere classified Status: Acute Assessment and Plan: On presentation patient on holding propofol patient she did not exhibit any purposeful movement. She was moving all 4 extremities but appears to be posturing. Patient was down for unknown period of time and also was in non shockable rhythm (asystole/PEA) -Head CT on presentation and repeat on 08/28 was negative for any acute change -Patient status post moderate TTM on presentation to try to keep patient normothermic. Tylenol and cooling blanket ordered EEG 08/28 This is an abnormal routine EEG due to the presence of diffuse slowing of the background as well as frontal, intermittent, rhythm delta activity. These findings are suggest of non-specific encephalopathy. Clinical correlation recommended. -appreciate Neurology evaluation, consult anoxic brain injury given patient has not had significant changes in examination since discontinuation of sedation -Continue Keppra -completely off sedation -On Eliquis, likely secondary to atrial fibrillation on review her of discharge summary from 08/20/2022 patient had MRI which did not show any stroke, she had a TTE with bubble study which showed a PFO but no atrial thrombus. 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 She was started on Eliquis. (3) Cardiac arrest: Code(s): I46.9 - Cardiac arrest, cause unspecified Status: Acute Assessment and Plan: most likely secondary to hypoglycemia although other etiologies are possible hypoglycemia has resolved serial troponin were done and now decreasing. Continue aspirin, beta-jeff No PE and CT scan suggest pneumonia which is being treated with antibiotics cardiology following Echo Summary 08/26/22 ? 1. Complete two-dimensional, color flow and Doppler transthoracic echocardiogram is performed. ? 2. Left ventricular chamber dimension is normal. ? 3. Left ventricular systolic function is normal, estimated at 60-65%. ? 4. There is moderately increased left ventricular wall thickness. ? 5. The left ventricular diastolic function is grade I diastolic dysfunction. ? 6. Right ventricular systolic function is normal. ? 7. Left atrial chamber dimension is moderately enlarged. ? 8. Right atrial chamber dimension is moderately enlarged. ? 9. There is mild mitral valve regurgitation. ? 10. There is mild tricuspid valve regurgitation. ? 11. Dilated inferior vena cava with <50% collapse upon inspiration consistent with elevated right atrial pressure, 15 mmHg Continue Eliquis (4) Hypoglycemia: Code(s): E16.2 - Hypoglycemia, unspec
[2022-09-01] MEDS: INSULIN GLARGINE (*BKC) 100 UNITS/ML 35 UNITS SUB-Q (08:21)
[2022-09-01 08:48] LABS: Glucose Point of Care 212 mg/dl (65-105)
--- NOTE | 2022-09-01 11:24 | PCNFU ---
Nutrition Follow-Up Complete: Inadequate protein energy intake related to NPO, increased protein needs from mechanical ventilation as evidenced by mechanical ventilation, need for full tube feeding goal: Meet estimated protein energy needs Patient is progressing towards goal. We will continue current goal Pt current nutrition is Vital AF 1.2 at 60 ml/hr. Last recorded weight is 108.4 kg. Bowel Motility:+BM reported 08/31 Labs Reviewed:TG 254, BUN 71, Alb 2.6 Meds Noted:Flagyl, Reglan, Lantus, Lisinopril, Eliquis, Keppra Skin: WNL Additional Notes: Patient remains on mechanical vent and tube feedings of Vital AF 1.2 at 60 ml/hr and tolerating. Tube feedings providing 1584 kcals/99 gms protein/1071 ml water. Flush 30 ml q 4 hours. Agree with diet orders. Monitor daily in ICU rounds. Reassessment Tuesdays and Fridays per policy
[2022-09-01] MEDS: hydrALAZINE HCL 50 MG TABLET FEED TUBE ×3 (12:09→20:05)
[2022-09-01 12:19] LABS: Glucose Point of Care 216 mg/dl (65-105)
[2022-09-01] MEDS: ALTEPLASE 2 MG VIAL (CATHFLO) IV PUSH ×2 (15:15→15:35)
[2022-09-01] MEDS: lisinopriL 20 MG TABLET 40 MG FEED TUBE (17:12)
[2022-09-01 17:21] LABS: Glucose Point of Care 258 mg/dl (65-105)
[2022-09-01 19:46] LABS: Glucose Point of Care 238 mg/dl (65-105)
[2022-09-01 23:11] LABS: Glucose Point of Care 233 mg/dl (65-105)
[2022-09-02] VITALS (21 sets, daily range): BP systolic 117–202; BP diastolic 57–112; PULSE 60–97; RESP 18–26; TEMP 35.8–37.9; O2SAT 91–99
[2022-09-02] MEDS: INSULIN ASPART (*BKC) 100 UNITS/ML SUB-Q ×4 (00:07→12:27)
[2022-09-02] MEDS: METOCLOPRAMIDE HCL 10 MG/10 ML SOLN UDC FEED TUBE ×3 (00:07→12:27)
[2022-09-02] MEDS: hydrALAZINE HCL 20 MG/ML VIAL IV PUSH ×2 (00:24→11:09)
[2022-09-02] MEDS: cloNIDine HCL 0.1 MG TABLET 0.3 MG PO ×2 (05:15→14:35)
[2022-09-02 05:16] LABS: Hemoglobin 11.5 g/dL (12.0-15.0); Mean Corpuscular HGB Conc 31.1 g/dl (32-36); Mean Corpuscular Volume 93.4 fl (80-100); Mean Platelet Volume 9.6 fl (7.4-10.4); Platelet Count Result 326 k/mm3 (150-375); Red Blood Count 3.96 M/mm3 (4.2-5.4); Red Cell Distribution Width 15.8 % (11.5-14.5); White Blood Count 12.6 K/mm3 (4.5-10.0)
[2022-09-02] MEDS: CENTRAL LINE FLUSH 10 ML IV PUSH ×2 (05:16→14:35)
[2022-09-02 05:36] LABS: Base Excess ABG 2.2 mEq/l (+/-2.0); Fractional Inspired Oxygen 30 %; HCO3 ABG 27.4 mEq/l (22.0-26.0); Methemoglobin ABG 0.4 %THb (0-1.5); Oxygen Content ABG 17.1 %vol (16.0-22.0); Oxygen Saturation ABG 96.3 % (95.0-100.0); Oxyhemoglobin 95.2 % THb (90.0-100.0); PCO2 ABG 45.1 mmHg (35.0-45.0); PO2 ABG 83.9 mmHg (80.0-100.0); Reduced Hemoglobin 4.4 %THb (0-5.0); Total Hemoglobin 12.7 g/dL (12.0-18.0); pH ABG 7.402 (7.350-7.450)
[2022-09-02 05:39] LABS: Arterial Blood Gas PEEP 8 cmH2O; Arterial Blood Gas Tidal Volume 400 ml; Arterial Blood Gas Vent Mode CMV; Arterial Blood Gas Ventilator rate 18 /MIN; Device VENTILATOR; Modified Allen's Test Pass; Site Drawn RIGHT RADIAL
[2022-09-02 06:42] LABS: Glucose Point of Care 256 mg/dl (65-105)
--- NOTE | 2022-09-02 07:19 | WPDINTPN ---
Progress Note: A&P Assessment and Plan (1) Acute respiratory failure: Code(s): J96.00 - Acute respiratory failure, unspecified whether with hypoxia or hypercapnia Status: Acute Assessment and Plan: Acute Respiratory failure secondary to cardiac arrest, encephalopathy and pneumonia. Intubated on 08/26/2022 -currently on CMV mode of ventilation -chest x-ray this morning: Possible minimal central pulmonary edema pattern. -Continue full mechanical ventilation support to prevent hypoxemia/hypercarbia and end organ damage. -ABG and ventilator settings reviewed -Low tidal volume ventilation strategy to prevent volutrauma -Ventilator weaning with the depend on her neurological improvement Chest CT 08/28 IMPRESSION: 1. Left lower lobe collapse and partial collapse of the right lower lobe. Underlying pneumonia not excludable. 2. Groundglass opacities in the left upper lobe and lingula with corresponding volume loss and noncollapsed portion of the right lower lobe and would favor additional less severe atelectasis over pneumonia. 3. Cardiomegaly with enlargement of the central pulmonary arteries consistent with pulmonary arterial hypertension. Continue cefepime and Flagyl for pneumonia Off vancomycin (2) Anoxic brain injury: Code(s): G93.1 - Anoxic brain damage, not elsewhere classified Status: Acute Assessment and Plan: On presentation patient on holding propofol patient she did not exhibit any purposeful movement. She was moving all 4 extremities but appears to be posturing. Patient was down for unknown period of time and also was in non shockable rhythm (asystole/PEA) -Head CT on presentation and repeat on 08/28 was negative for any acute change -Patient status post moderate TTM on presentation to try to keep patient normothermic. Tylenol and cooling blanket ordered EEG 08/28 This is an abnormal routine EEG due to the presence of diffuse slowing of the background as well as frontal, intermittent, rhythm delta activity. These findings are suggest of non-specific encephalopathy. Clinical correlation recommended. -appreciate Neurology evaluation, concern for anoxic brain injury given patient has not had significant changes in examination since discontinuation of sedation -Continue Keppra -completely off sedation -On Eliquis, likely secondary to atrial fibrillation on review her of discharge summary from 08/20/2022 patient had MRI which did not show any stroke, she had a TTE with bubble study which showed a PFO but no atrial thrombus. 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 She was started on Eliquis. (3) Cardiac arrest: Code(s): I46.9 - Cardiac arrest, cause unspecified Status: Acute Assessment and Plan: most likely secondary to hypoglycemia although other etiologies are possible hypoglycemia has resolved serial troponin were done and now decreasing. Continue aspirin, beta-jeff No PE and CT scan suggest pneumonia which is being treated with antibiotics cardiology following Echo Summary 08/26/22 ? 1. Complete two-dimensional, color flow and Doppler transthoracic echocardiogram is performed. ? 2. Left ventricular chamber dimension is normal. ? 3. Left ventricular systolic function is normal, estimated at 60-65%. ? 4. There is moderately increased left ventricular wall thickness. ? 5. The left ventricular diastolic function is grade I diastolic dysfunction. ? 6. Right ventricular systolic function is normal. ? 7. Left atrial chamber dimension is moderately enlarged. ? 8. Right atrial chamber dimension is moderately enlarged. ? 9. There is mild mitral valve regurgitation. ? 10. There is mild tricuspid valve regurgitation. ? 11. Dilated inferior vena cava with <50% collapse upon inspiration consistent with elevated right atrial pressure, 15 mmHg Continue Eliquis (4) Hypoglycemia: Code(s): E16.2 - Hypoglycemia, unspecified Status: Acute
[2022-09-02] MEDS: amLODIPine BESYLATE 5 MG TABLET 10 MG FEED TUBE (08:03)
[2022-09-02] MEDS: hydrALAZINE HCL 50 MG TABLET FEED TUBE ×2 (08:03→12:27)
[2022-09-02] MEDS: carvediloL 6.25 MG TABLET FEED TUBE (08:03)
[2022-09-02] MEDS: APIXABAN 5 MG TABLET PO (08:03)
[2022-09-02] MEDS: ASPIRIN 325 MG TABLET FEED TUBE (08:03)
[2022-09-02] MEDS: PANTOPRAZOLE SODIUM IV 40 MG VIAL IV PUSH (08:03)
[2022-09-02] MEDS: INSULIN GLARGINE (*BKC) 100 UNITS/ML 35 UNITS SUB-Q (08:04)
[2022-09-02] MEDS: levETIRAcetam 500MG/NACL 100ML 500 MG/100 ML BAG 400 MG IVPB (08:16)
[2022-09-02 08:22] LABS: Glucose Point of Care 233 mg/dl (65-105)
[2022-09-02 08:31] LABS: Alanine Aminotransferase 24 U/L (6-35); Albumin Level 2.4 g/dL (3.5-5.1); Alkaline Phosphatase 57 U/L (38-126); Anion Gap 0 mmol/L (8-16); Aspartate Amino Transferase 20 U/L (14-36); Bilirubin,Total 0.5 mg/dL (0.2-1.3); Blood Urea Nitrogen 72 mg/dL (7-17); Calcium 10.2 mg/dL (8.4-10.2); Carbon Dioxide 31 mmol/L (22-30); Chloride 112 mmol/L (98-107); Estimated CRCL calculation 93 ml/min; Estimated Glomerular Filt Rate > 60; Glucose 257 mg/dL (65-110); Magnesium 2.5 mg/dL (1.6-2.3); Sodium 143 mmol/L (137-145)
[2022-09-02 09:24] LABS: Potassium 5.2 mmol/L (3.4-5.0)
--- NOTE | 2022-09-02 10:55 | PCFNICU ---
ICU Rounding Note: Pt current nutrition is Vital 1.2 @ 60 ml/h. Flushes 30 ml q 4 hours. 1584 kcals (~97% EER), 99 g protein, 1250 ml total free water. Nutrition recommendation: Continue with current orders. Agree with orders. Last recorded weight is 109.3 kg. Bowel Motility: Last BM 08/31/22 Labs Reviewed: Hgb 11.5, Hct 37, Alb 2.6, K 5.2, Glu 230 Meds Noted: Sedation off. Keppra, Eliquis, Reglan, Lantus Skin: pitting edema Additional Notes: Remains on vent. Tube feeds are well tolerated. Continue current care plan. Agree with orders. Following daily in ICU rounds. Monitor daily in ICU rounds. Reassessment Tuesdays and Fridays per policy.
[2022-09-02 12:29] LABS: Glucose Point of Care 221 mg/dl (65-105)
[2022-09-02] MEDS: ACETAMINOPHEN 325 MG TABLET 650 MG PO (14:35)
[2022-09-02] MEDS: MORPHINE SULFATE INJ (*CRX) 10 MG/ML AMP 5 MG IV PUSH (17:16)
[2022-09-02] MEDS: LORazepam INJ (*CRX) 2 MG/ML VIAL IV PUSH ×2 (17:16→23:28)
[2022-09-02] MEDS: MORPHINE SULFATE (*CRX) 2 MG/ML INJ IV PUSH ×2 (20:49→23:28)
[2022-09-03] MEDS: MORPHINE SULFATE (*CRX) 2 MG/ML INJ IV PUSH ×5 (05:52→15:04)
[2022-09-03] MEDS: LORazepam INJ (*CRX) 2 MG/ML VIAL IV PUSH ×5 (05:52→15:05)
[2022-09-03 08:00] VITALS: BP 147/82; PULSE 94; RESP 24; TEMP 37; O2SAT 85
--- NOTE | 2022-09-03 13:03 | PCFNICU ---
ICU Rounding Note: Pt current nutrition is NPO.. Last recorded weight is 109.5 kg. Bowel Motility:+Bm reported 08/31 Labs Reviewed:Glu 257, K 5.2 Meds Noted:Morphine,Ativan Skin: WNL Additional Notes: Patient has been extubated. DNR. Diet order: NPO. No Trach or PEG per family wishes. No further nutritional interventions needed. Following daily in ICU rounds.
--- NOTE | 2022-09-03 15:50 | PM.DS ---
DS: Admitting Diagnosis Discharge Date 09/03/2022 Admitting Diagnosis Cardiac arrest DS: Discharge Diagnosis Discharge Diagnosis (1) Acute respiratory failure: Code(s): J96.00 - Acute respiratory failure, unspecified whether with hypoxia or hypercapnia Status: Acute (2) Anoxic brain injury: Code(s): G93.1 - Anoxic brain damage, not elsewhere classified Status: Acute (3) Cardiac arrest: Code(s): I46.9 - Cardiac arrest, cause unspecified Status: Acute (4) Hypoglycemia: Code(s): E16.2 - Hypoglycemia, unspecified Status: Acute (5) Type 1 diabetes mellitus with hyperglycemia: Code(s): E10.65 - Type 1 diabetes mellitus with hyperglycemia Status: Acute (6) Hypertensive heart disease with heart failure: Code(s): I11.0 - Hypertensive heart disease with heart failure Status: Acute (7) Chronic systolic (congestive) heart failure: Code(s): I50.22 - Chronic systolic (congestive) heart failure Status: Acute (8) Elevated troponin: Code(s): R77.8 - Other specified abnormalities of plasma proteins Status: Acute (9) Pneumonia: Code(s): J18.9 - Pneumonia, unspecified organism Status: Acute (10) Swelling of right lower extremity: Code(s): M79.89 - Other specified soft tissue disorders Status: Acute (11) Electrolyte abnormality: Code(s): E87.8 - Other disorders of electrolyte and fluid balance, not elsewhere classified Status: Acute DS: Summary Hospital Course Hospital Course: Cassie Sharpe is a 61 year old female with a history of atrial fibrillation, hypertension, hyperlipidemia, diabetes mellitus, CHF who was found unresponsive. Patient was found down with insulin syrunge next to her on day of presentation. EMS was called and her blood sugar was in the 60s. She was in PEA Arrest, S/p ROSC. It is unclear how long patient was down . In the ED, she was intubated and sedated with propofol. CT head was negative for acute process. There are also concerns for myoclonic type movements so she has been started in maintenance Keppra 500mg BID. Intubated on 08/26/2022 # acute respiratory failure secondary to cardiac arrest encephalopathy and pneumonia. Intubated 08/26/2022. CT chest with left lower lobe collapse and partial collapse of the right lower lobe. Ground-glass opacities in the left upper lobe and lingula with corresponding volume loss a non collapsed portion of the right lower lobe and favor additional less severe atelectasis over pneumonia. Cardiomegaly with enlargement of the central pulmonary arteries consistent with pulmonary arterial hypertension. Treated with broad-spectrum antibiotics # anoxic brain injury: Patient with myoclonic type movements on arrival to the ER further noted to be post during. Was down for unknown period time and was in non shockable rhythm (asystole/PEA). CT head was negative. Status post moderate TTM on presentation. EEG with abnormality related to diffuse slowing of the background as well as frontal intermittent rhythm delta activity suggestive of nonspecific encephalopathy. Neurology was consulted. Started on Keppra. # cardiac arrest: Most likely secondary to hypoglycemia although other etiologies are possible. Hypoglycemia resolved. Serial troponin was done and decreasing. Aspirin beta-jeff. No PE and CT suggest pneumonia which has been treated with antibiotics. Echocardiogram with ejection fraction 60-65% grade 1 diastolic dysfunction. No significant valvular abnormality. # hypoglycemia issues hypoglycemia in the past. Insulin dosing has been adjusted in the past. Could be accidental overdose of insulin. # type 1 diabetes mellitus on insulin # hypertensive heart disease with heart failure # chronic systolic heart failure EF 60-65% on echocardiogram this admission # pneumonia CT suggests pneumonia with elevated WBC count could be aspiration. On vancomycin c
[2022-09-03 16:16] LABS: Glucose Point of Care 109 mg/dl (65-105)
== END 2022-09-03 16:04 | disposition hospice, inpatient (51) | DRG 420 ==
LOC: ANHED 02:43 → ANHICU 06:37
PROVIDERS: Internal Medicine; Admitting Provider Internal Medicine; Emergency Provider Emergency Medicine; PCP Family Medicine Adolescent Medicine; Visit Provider Internal Medicine
DX: E11.649 Type 2 diabetes mellitus with hypoglycemia without coma (principal); J96.01 Acute respiratory failure with hypoxia; I46.8 Cardiac arrest due to other underlying condition; G93.1 Anoxic brain damage, not elsewhere classified; J18.9 Pneumonia, unspecified organism; G93.40 Encephalopathy, unspecified; I11.0 Hypertensive heart disease with heart failure; I50.22 Chronic systolic (congestive) heart failure; E10.65 Type 1 diabetes mellitus with hyperglycemia; D64.9 Anemia, unspecified; Z20.822 Contact with and (suspected) exposure to COVID-19; Z66 Do not resuscitate; Z88.1 Allergy status to other antibiotic agents
CPT/HCPCS: 31500; 36415; 36569; 36600; 51702; 70450; 71045; 71250; 71260; 74018; 74177; 80048; 80053; 80162; 80202; 80307; 81001; 82375; 82805; 82948; 83050; 83605; 83735; 83880; 84100; 84478; 84484; 85014; 85018; 85025; 85027; 85610; 85730; 87040; 87045; 87070; 87081; 87086; 87205; 87269; 87272; 87427; 87493; 87636; 89055; 93005; 93306; 93970; 94003; 95816; 96361; 96365; 99291; A9270; C1751; C9113; J0171; J0330; J0360; J0692; J1650; J1815; J1940; J1953; J2060; J2270; J2704; J2997; J3370; J7030; J7042; Q9967

== ENCOUNTER 2022-09-03 16:05 | HOS | payer OTHER, SELFPAY ==
[2022-09-03 16:54] VITALS: BMI 37.8
[2022-09-03] MEDS: LORazepam INJ (*CRX) 2 MG/ML VIAL 1 MG IV PUSH (17:00)
[2022-09-03] MEDS: MORPHINE SULFATE (*CRX) 4 MG/ML INJ IV PUSH (17:00)
[2022-09-03] MEDS: MORPHINE 50 MG/NS 100ML (*CRX) 50 MG/100 ML BAG IV CONT (17:10)
[2022-09-03 17:39] VITALS: O2SAT 79
--- NOTE | 2022-09-03 19:11 | PM.IMHP ---
H&P: HPI History of Present Illness Date/Time: 09/03/22 19:11 Chief Complaint: Uncontrolled dyspnea Narrative: This unfortunate 61-year-old diabetic female was admitted to [facility] August 26 after cardiac arrest. EMS was summoned when the patient was found down with an insulin syringe beside her. When they arrive she was in asystole. CPR was performed and PE a was obtained. ROSC occurred. She was intubated and IO access was obtained. She was brought the emergency department where she was supported on the ventilator and admitted to intensive care. Although she initially had some spontaneous movement and attempts to pull out the ET tube. Unfortunately this did not persist. She was supported on the ventilator until her family opted for comfort care only. She did have some spontaneous myoclonic movements that were not purposeful. These dissipated after initiation of levetiracetam 500 mg twice daily. 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, left eye Surgical History Surgical History Hx of section Hx of cholecystectomy (2008) Social History Social History Smoking status: Unknown if ever smoked Alcohol intake: unknown Substance use: unknown Substance use type: unknown Spiritual care concerns: No Meds Home Medications and Allergies Home Medications Medication Instructions Recorded Confirmed Type aspirin 81 mg tablet,delayed 81 mg PO DAILY 04/01/22 08/26/22 History release amlodipine 10 mg tablet 10 mg PO DAILY 08/26/22 08/26/22 History apixaban 5 mg (74 tabs) tablets in 5 mg PO BID 08/26/22 08/26/22 History a dose pack (Eliquis DVT-PE Treat 30D Start) clonidine HCl 0.2 mg tablet 0.2 mg PO TID 08/26/22 08/26/22 History digoxin 250 mcg (0.25 mg) tablet 250 mcg PO DAILY 08/26/22 08/26/22 History furosemide 40 mg tablet 40 mg PO DAILY 08/26/22 08/26/22 History insulin NPH-regular 70-30 U-100 See Rx Instructions .Route .COMPLEX 08/26/22 08/26/22 History insulin 100 unit/mL subcutaneous pen (Humulin 70/30 U-100 KwikPen) insulin glargine 100 unit/mL (3 70 unit subcut QHS 08/26/22 08/26/22 History mL) subcutaneous pen insulin lispro 100 unit/mL 12 unit subcut TIDWMEAL 08/26/22 08/26/22 History subcutaneous pen isosorbide mononitrate 60 mg 60 mg PO DAILY 08/26/22 08/26/22 History tablet,extended release 24 hr lisinopril 40 mg tablet 40 mg PO DAILY 08/26/22 08/26/22 History metformin 500 mg tablet,extended 1,000 mg PO BID 08/26/22 08/26/22 History release 24 hr Allergies Allergy/AdvReac Type Severity Reaction Status Date / Time amoxicillin [From Augmentin] Allergy Unknown Verified 08/26/22 09:54 clavulanic acid Allergy Unknown Verified 08/26/22 09:54 [From Augmentin] Vital Signs Vital Signs - 24 hr 09/03/22 17:39 Pulse Oximetry 79 L Oxygen Delivery Room Air Exam Narrative: Chronically ill-appearing elderly female with mild generalized nonpitting edema is lying comfortably in hospital bed Neck without JVD Chest clear and respirations nonlabored Heart regular rate without audible murmur Extremities with mild generalized nonpitting edema Abdomen hypoactive bowel sounds soft no obvious tenderness Musculoskeletal without gross deformity to visual inspection Neurologic cranial nerves symmetric to visual inspection Psychiatric unresponsive to verbal or tactile stimuli Assessment and Plan Assessment and plan (1) Palliative care encounter: Code(s): Z51.
[2022-09-03 19:58] VITALS: PULSE 115; RESP 16; O2SAT 73
[2022-09-03] MEDS: levETIRAcetam 500MG/NACL 100ML 500 MG/100 ML BAG 400 MG IVPB (20:42)
[2022-09-04 02:28] VITALS: BP 133/74; PULSE 112; RESP 19; TEMP 37.2; O2SAT 66
[2022-09-04 05:09] VITALS: BP 123/62; PULSE 118; RESP 15; TEMP 37.7; O2SAT 74
--- NOTE | 2022-09-04 06:24 | PC.NURSE ---
Patient at 0557. Family notified and now at bedside. [facility] also notified of patient expiration.
--- NOTE | 2022-09-12 11:04 | PM.DDS ---
Discharge Summary Date and Time Date of : 09/04/22 Time of : 05:57 Probable Cause of Probable Cause of : Respiratory falure due to postanoxic encephalopathy due to asystole in the presence of hypoglycemia likely due to insulin use Summary Hospital Course: Admitted to inpatient hospice for uncontrolled dyspnea Medications titrated to comfort. Mrs. Sharpe expikred peacefully. Additional Data Confirmation of as documented by pronouncing clinician: Pupillary Reflex, Palpable Pulses, Response to Stimuli, Heart Tones and Breath Sounds Name of Provider Notified: dr akers Time Provider Notified: 06:12 Provider Requests Autopsy: No Family Requests Autopsy: No Rn Licensed Practical Notified: Yes Date [facility] Notified of : 09/04/22
== END 2022-09-04 05:57 | disposition expired | DRG 951 ==
PROVIDERS: Admitting Provider Internal Medicine; PCP Family Medicine Adolescent Medicine; Visit Provider Internal Medicine
DX: Z51.5 Encounter for palliative care (principal); J96.00 Acute respiratory failure, unspecified whether with hypoxia or hypercapnia; J18.9 Pneumonia, unspecified organism; I50.22 Chronic systolic (congestive) heart failure; G93.1 Anoxic brain damage, not elsewhere classified; I48.91 Unspecified atrial fibrillation; E10.3292 Type 1 diabetes mellitus with mild nonproliferative diabetic retinopathy without macular edema, left eye; I25.10 Atherosclerotic heart disease of native coronary artery without angina pectoris; I46.9 Cardiac arrest, cause unspecified
CPT/HCPCS: A9270; J1953; J2060; J2270